=== PATIENT | female | born 1980 | race Caucasian/White ===

== ENCOUNTER → 2016-09-11 | Outpatient (CLI) | payer OTHER ==
--- NOTE | 2016-09-11 17:35 | Non Stress Test Report ---
Non Stress Test Datetime Report Generated by CPN: 09/11/2016 17:34 DEMOGRAPHIC Test Number: 1 EGA NST: 33.4 INDICATION Indication for Study: Ordered by Provider MONITORING Monitor Explained: Monitor Explained; Test Explained; Patient Verbalized Understanding Time on Monitor: 09/11/2016 16:59 Time off Monitor: 09/11/2016 17:27 NST Duration: 28 NST INTERVENTIONS NST Interventions: Reposition Patient Physician Notified NST: H. Lex, CNM BABY A: [id number] BABY A Movement : Present Contraction Frequency : None FHR Baseline : 135 Accelerations : 15X15 Decelerations : None Variability : Moderate 6-25bpm NST Review: Meets Criteria for Reactive NST NST Review and Verified By : Ash Flores RN NST Results: Reactive NST REPORT Report Trigger: Send Report
== END | disposition home or self-care (01) ==
LOC: LC 18:13
PROVIDERS: ATTEND Obstetrics & Gynecology
PROC: 4A1HXCZ Monitoring of Products of Conception, Cardiac Rate, External Approach (ICD-10-PCS; principal; 2016-09-11)
DX: O09.523 Supervision of elderly multigravida, third trimester (principal); Z3A.33 33 weeks gestation of pregnancy
CPT/HCPCS: 59025

== ENCOUNTER 2016-09-15 21:07 | Inpatient (IN) | payer OTHER ==
[2016-09-15] MEDS ORDERED: PENICILLIN G POTASSIUM 5,000,000 UNIT in DEXTROSE 5%-WATER 100 ML IV ONE (22:07)
[2016-09-15] MEDS ORDERED: PENICILLIN G-K 5 MILLION UNIT VIAL ONE (22:17)
[2016-09-15] MEDS ORDERED: PENICILLIN G-K 5 MILLION UNIT VIAL IV PRN ×2 (22:23→22:24)
[2016-09-15 22:49] LABS: AMNISURE (ROM) POSITIVE (NEGATIVE)
[2016-09-15 22:54] LABS: APPEARANCE,URINE CLEAR; BILIRUBIN,URINE NEGATIVE (NEGATIVE); GLUCOSE, URINE NEGATIVE (NEGATIVE); KETONES,URINE NEGATIVE (NEGATIVE); LEUKOCYTE ESTERASE,URINE TRACE (NEGATIVE); NITRITE,URINE NEGATIVE (NEGATIVE); PROTEIN,URINE NEGATIVE (NEGATIVE); UROBILINOGEN,URINE NEGATIVE mg/dL (<2.0)
[2016-09-15 23:00] LABS: URINE BARBITURATES SCREEN NEGATIVE; URINE METHADONE SCREEN NEGATIVE; URINE OPIATES LOW NEGATIVE; URINE PHENCYCLIDINE SCREEN NEGATIVE
[2016-09-15 23:17] LABS: ABSOLUTE EOSINOPHILS # (AUTO) 0.2 10^3/uL (0.0-0.6); ABSOLUTE LYMPHOCYTES (AUTO) 2.4 10^3/uL (0.5-4.7); ABSOLUTE MONOCYTES (AUTO) 0.9 10^3/uL (0.1-1.4); ABSOLUTE NEUT (AUTO) 11.6 10^3/uL (1.7-8.2); BASOPHILS % (AUTO) 0.1 % (0-2); EOSINOPHILS % (AUTO) 1.3 % (0-6); HEMOGLOBIN 11.4 g/dL (12.0-15.5); HGB HCT DIFFERENCE 0.2; LYMPHOCYTES % (AUTO) 15.7 % (13-45); MEAN CORPUSCULAR HEMOGLOBIN 29.2 pg (27.0-33.4); MEAN CORPUSCULAR HGB CONC 33.6 g/dL (32.0-36.0); MEAN CORPUSCULAR VOLUME 87 fl (80-97); MONOCYTES % (AUTO) 6.1 % (3-13); RED BLOOD COUNT 3.91 10^6/uL (3.72-5.28); RED CELL DISTRIBUTION WIDTH 13.8 % (11.5-14.0); SEGMENTED NEUTROPHILS % (AUTO) 76.8 % (42-78); WHITE BLOOD COUNT 15.1 10^3/uL (4.0-10.5)
[2016-09-15] MEDS ORDERED: ALBUTEROL SULFATE 0.083% NEB 2.5 MG/3 ML AMPUL NEB PRN (23:58)
[2016-09-16] MEDS ORDERED: ALBUTEROL SULFATE 0.083% NEB 2.5 MG/3 ML AMPUL NEB ONE (00:25)
[2016-09-16] MEDS: RINGERS SOLUTION,LACTATED 1,000 ML IV PRN ×2 (01:51→02:40)
[2016-09-16] MEDS ORDERED: PENICILLIN G POTASSIUM 2,500,000 UNIT in DEXTROSE 5%-WATER 50 ML IV SCH (02:08)
[2016-09-16] MEDS ORDERED: PENICILLIN G-K 5 MILLION UNIT VIAL ONE ×2 (02:26→06:16)
[2016-09-16] MEDS ORDERED: OXYTOCIN/NORMAL SALINE 1,000 ML IV PRN (02:50)
[2016-09-16] MEDS ORDERED: OXYTOCIN/NORMAL SALINE 20 UNIT/1,000 ML RTUINJ ONE (03:10)
[2016-09-16] MEDS ORDERED: ONDANSETRON HCL INJ/PF 4 MG/2 ML SDV ONE (03:36)
[2016-09-16] MEDS ORDERED: ONDANSETRON HCL INJ/PF 4 MG/2 ML SDV IV ONE (04:00)
[2016-09-16] MEDS ORDERED: PHENYLEPHRINE HCL INJ/PF 10 MG/1 ML SDV ONE (07:33)
--- NOTE | 2016-09-16 08:01 | L&D Flow Sheet ---
LD Flowsheet Datetime Report Generated by CPN: 09/16/2016 08:00 Datetime: 09/16/2016 07:52 Pulse: 92 (QS system process) SpO2 (%): 99 (QS system process) LaborFlag: Antepartum (QS system process) Datetime: 09/16/2016 07:49 Pulse: 97 (QS system process) SpO2 (%): 93 (QS system process) LaborFlag: Antepartum (QS system process) Datetime: 09/16/2016 07:47 Pulse: 98 (QS system process) SpO2 (%): 99 (QS system process) LaborFlag: Antepartum (QS system process) Datetime: 09/16/2016 07:42 Pulse: 105 (QS system process) Pulse: 103 (QS system process) SpO2 (%): 87 (QS system process) SpO2 (%): 89 (QS system process) LaborFlag: Antepartum (QS system process) Datetime: 09/16/2016 07:37 Pulse: 106 (QS system process) SpO2 (%): 100 (QS system process) LaborFlag: Antepartum (QS system process) Datetime: 09/16/2016 07:34 Monitor Interventions for FHR: Ultrasound Adjusted (Nati Hallman RN) Patient Position/Activity: Hands-Knees (Nati Hallman RN) Communication: RN at Bedside (Nati Hallman RN) Datetime: 09/16/2016 07:30 Level of Consciousness: Fully Conscious (Nati Hallman RN) DTR's/Clonus: DTRs 2+; No Clonus (Nati Hallman RN) Headache: Denies (Nati Hallman RN) Breath Sounds, Left: Clear and Equal (aNti Hallman RN) Breath Sounds, Right: Clear and Equal (Nati Hallman RN) Nausea/Vomiting: Denies (Nati Hallman RN) RUQ Epigastric Pain: Denies (Nati Hallman RN) I/O Interventions: Up to BR (Nati Hallman RN) Datetime: 09/16/2016 07:28 Pulse: 93 (QS system process) SpO2 (%): 100 (QS system process) LaborFlag: Antepartum (QS system process) Datetime: 09/16/2016 07:23 Pulse: 87 (QS system process) SpO2 (%): 100 (QS system process) LaborFlag: Antepartum (QS system process) Datetime: 09/16/2016 07:18 Pulse: 93 (QS system process) SpO2 (%): 99 (QS system process) LaborFlag: Antepartum (QS system process) Datetime: 09/16/2016 07:13 Pulse: 99 (QS system process) SpO2 (%): 99 (QS system process) LaborFlag: Antepartum (QS system process) Datetime: 09/16/2016 07:08 Pulse: 103 (QS system process) SpO2 (%): 100 (QS system process) LaborFlag: Antepartum (QS system process) Datetime: 09/16/2016 07:04 Patient Care Comments: D5LR bolus per orders from Dr Rocha (Monae Dowlingsel, RN) Datetime: 09/16/2016 07:03 Pulse: 97 (QS system process) SpO2 (%): 100 (QS system process) LaborFlag: Antepartum (QS system process) Datetime: 09/16/2016 07:02 Monitor Interventions for UA: Vineyard Adjusted (Monae Christa, RN) Datetime: 09/16/2016 07:00 Monitor Mode: External; Palpation (Monae Christa, RN) Frequency (min): 3-4 (Monae Christa, RN) Quality: Mild (Monae Christa, RN) Duration (sec): 50-80 (Monae Christa, RN) Resting Tone (Palpate): Relaxed (Monae Christa, RN) Monitor Mode: External US (Monae Christa, RN) FHR Baseline Rate : 145 (Monae Christa, RN) Variability: Moderate 6-25 bpm (Monae Christa, RN) Accelerations: None (Monae Christa, RN) Decelerations: Variable (Monae Christa, RN) Pitocin (milliunit): Pitocin Remains (milliunits) @ (Annotations: 4 ) (Monae Christa, RN) Datetime: 09/16/2016 06:58 Pulse: 93 (QS system process) SpO2 (%): 98 (QS system process) Quality: Mild (Monae Christa, RN) Contraction Comments: Pt reporting ctx (Monae Christa, RN) LaborFlag: Antepartum (QS system process) Datetime: 09/16/2016 06:53 Pulse: 91 (QS system process) SpO2 (%): 100 (QS system process) LaborFlag: Antepartum (QS system process) Datetime: 09/16/2016 06:50 Actions for Decelerations: Provider Reviewed Strip (Monae Christa, RN) Datetime: 09/16/2016 06:48 Pulse: 103 (QS system process) SpO2 (%): 100 (QS system process) LaborFlag: Antepartum (QS system process) Datetime: 09/16/2016 06:45 Contraction Comments: Unable to accurately assess ctx, RN adjusted toco (Monae Christa, RN) Monitor Mode: External US (Monae Christa, RN) FHR Baseline Rate : 145 (Monae Christa, RN) Variability: Moderate 6-25 bpm (Monae Christa, RN) Accelerations: 10X10 (Monae Christa, RN) Decelerations: Variable (Monae Christa, RN) Pitocin (milliunit): Pitocin Remains (milliunits) @ (Annotations: 4) (Monae Christa, RN) Datetime: 09/16/2016 06:43 Pulse: 98 (QS system process) SpO2 (%): 99 (QS system process) LaborFlag: Antepartum (QS system process) Datetime: 09/16/2016 06:39 Monitor Interventions for UA: Vineyard Adjusted (Monae Christa, RN) Datetime: 09/16/2016 06:38 Pulse: 102 (QS system process) SpO2 (%): 100 (QS system process) Actions for Decelerations: Trendelenberg (Monae Christa, RN) LaborFlag: Antepartum (QS system process) Datetime: 09/16/2016 06:33 Pulse: 102 (QS system process) SpO2 (%): 100 (QS system process) LaborFlag: Antepartum (QS system process) Datetime: 09/16/2016 06:31 Comments: side to side (Monae Christa, RN) Datetime: 09/16/2016 06:30 Monitor Mode: External; Palpation (Monae Christa, RN) Frequency (min): 2-5 (Monae Christa, RN) Quality: Mild (Monae Christa, RN) Duration (sec): 50-70 (Monae Christa, RN) Resting Tone (Palpate): Relaxed (Monae Christa, RN) Monitor Mode: External US (Monae Christa, RN) FHR Baseline Rate : 150 (Monae Christa, RN) Variability: Minimal - Undetectable to <=5 bpm (Monae Christa, RN) Accelerations: None (Monae Christa, RN) Decelerations: Variable (Monae Christa, RN) Pitocin (milliunit): Pitocin Remains (milliunits) @ (Annotations: 4) (Monae Christa, RN) Datetime: 09/16/2016 06:28 Pulse: 103 (QS system process) SpO2 (%): 98 (QS system process) Comments: side to side (Monae Christa, RN) LaborFlag: Antepartum (QS system process) Datetime: 09/16/2016 06:25 Comments: side to side (Monae Christa, RN) Datetime: 09/16/2016 06:22 Comments: Rn remains at bedside attempting to locate FHR (Monae Christa, RN) Datetime: 09/16/2016 06:19 Actions for Decelerations: Sterile Vaginal Exam (Monae Christa, RN) Actions for Decelerations: IV Bolus (Monae Christa, RN) Dilatation (cm): 1.0 (Monae Christa, RN) Effacement (%): 30 (Monae Christa, RN) Station: -2 (Monae Goodwin RN) Exam by: Renato Goodwin RN (Monae Goodwin RN) Vaginal Bleeding: None (Monae Goodwin RN) Cervix, Consistency: Soft (Monae Goodwin RN) Cervix, Position: Midposition (Monae Goodwin RN) Pitocin (milliunit): Pitocin Decreased to (milliunits) @ 4 (Monae Goodwin RN) IV/Blood Work: IV Bolus Given ml @ 250 (Monae Goodwin RN) Datetime: 09/16/2016 06:15 Monitor Mode: External; Palpation (Monae Goodwin RN) Frequency (min): 2-4 (Monae Goodwin RN) Quality: Mild (Monae Goodwin RN) Duration (sec): 50-80 (Monae Goodwin RN) Resting Tone (Palpate): Relaxed (Monae Goodwin RN) Monitor Mode: External US (Monae Goodwin RN) FHR Baseline Rate : 150 (Monae Goodwin RN) Variability: Minimal - Undetectable to <=5 bpm (Monae Goodwin RN) Accelerations: None (Monae Goodwin RN) Decelerations: Variable (Monae Goodwin RN) Actions for Decelerations: Provider Reviewed Strip (Monae Goodwin RN) Pitocin (milliunit): Pitocin Remains (milliunits) @ (Annotations: 8) (Monae Christa, RN) Provider Reviewed Strip: Yes (Monae Goodwin, RN) Communication Comments: DR Rocha on unit, reviewed strip, Orders to decrease pitocin and SVE now (Monae Goodwin, RN) Datetime: 09/16/2016 06:11 Communication Comments: Dr. Rocha notified of repetitive variables . MD requested to review tracing. (Shadia Temple, RN) Datetime: 09/16/2016 06:04 Actions for Decelerations: Side to Side (Monae Dowlingsel, RN) Datetime: 09/16/2016 06:00 Monitor Mode: External (Monae Christa, RN) Frequency (min): 2-3.5 (Monae Christa, RN) Quality: Mild (Monae Christa, RN) Duration (sec): 70-120 (Monae Christa, RN) Resting Tone (Palpate): Relaxed (Monae Christa, RN) Monitor Mode: External US (Monae Christa, RN) FHR Baseline Rate : 145 (Monae Christa, RN) Variability: Moderate 6-25 bpm (Monae Christa, RN) Accelerations: 10X10 (Monae Christa, RN) Decelerations: Variable (Monae Christa, RN) Pitocin (milliunit): Pitocin Remains (milliunits) @ (Annotations: 8) (Monae Christa, RN) Datetime: 09/16/2016 05:59 Patient Position/Activity: Right Tilt (Monae Christa, RN) Communication: RN at Bedside (Monae Christa, RN) Datetime: 09/16/2016 05:45 Monitor Mode: External (Monae Christa, RN) Frequency (min): 2-4 (Monae Christa, RN) Quality: Mild (Monae Christa, RN) Duration (sec): 60-80 (Omnae Christa, RN) Resting Tone (Palpate): Relaxed (Monae Christa, RN) Monitor Mode: External US (Monae Christa, RN) FHR Baseline Rate : 145 (Monae Christa, RN) Variability: Moderate 6-25 bpm (Monae Christa, RN) Accelerations: 15X15 (Monae Christa, RN) Decelerations: Variable (Monae Christa, RN) Pitocin (milliunit): Pitocin Remains (milliunits) @ (Annotations: 8) (Monae Christa, RN) Datetime: 09/16/2016 05:30 Contraction Comments: Unable to assess, pt up to BR (Monae Christa, RN) Monitor Mode: External US (Monae Christa, RN) FHR Baseline Rate : 145 (Monae Christa, RN) Variability: Moderate 6-25 bpm (Monae Christa, RN) Accelerations: None (Monae Christa, RN) Decelerations: None (Monae Christa, RN) Pitocin (milliunit): Pitocin Remains (milliunits) @ (Annotations: 8) (Monae Christa, RN) Datetime: 09/16/2016 05:22 I/O Interventions: Up to BR (Monae Christa, RN) Datetime: 09/16/2016 05:15 Monitor Mode: External (Monae Christa, RN) Frequency (min): none (Monae Christa, RN) Resting Tone (Palpate): Relaxed (Monae Christa, RN) Monitor Mode: External US (Monae Christa, RN) FHR Baseline Rate : 145 (Monae Christa, RN) Variability: Moderate 6-25 bpm (Monae Christa, RN) Accelerations: None (Monae Christa, RN) Decelerations: Variable (Monae Christa, RN) Pitocin (milliunit): Pitocin Increased to (milliunits) @ 8 (Monae Christa, RN) Datetime: 09/16/2016 05:06 NBP Sys/Penny/Mean (mmHg): 116 (QS system process) : 69 (QS system process) : 87 (QS system process) Pulse: 94 (QS system process) LaborFlag: Antepartum (QS system process) Datetime: 09/16/2016 05:00 Monitor Mode: External (Monae Christa, RN) Frequency (min): none (Monae Christa, RN) Resting Tone (Palpate): Relaxed (Monae Christa, RN) Monitor Mode: External US (Monae Christa, RN) FHR Baseline Rate : 140 (Monae Christa, RN) Variability: Moderate 6-25 bpm (Monae Christa, RN) Accelerations: 10X10 (Monae Christa, RN) Decelerations: None (Monae Christa, RN) Pitocin (milliunit): Pitocin Remains (milliunits) @ 6 (Monae Christa, RN) Datetime: 09/16/2016 04:51 NBP Sys/Penny/Mean (mmHg): 114 (QS system process) : 68 (QS system process) : 83 (QS system process) Pulse: 105 (QS system process) LaborFlag: Antepartum (QS system process) Datetime: 09/16/2016 04:50 Additional Nursing Comments: Report to oncoming shift, care relinquished to JULISSA Brooke (Shadia Temple RN) Datetime: 09/16/2016 04:45 Monitor Mode: External; Palpation (Shadia Temple RN) Frequency (min): none (Shadia Temple RN) Resting Tone (Palpate): Relaxed (Shadia Temple RN) Monitor Mode: External US (Shadia Kossmann, RN) FHR Baseline Rate : 145 (Shadia Temple, RN) Variability: Moderate 6-25 bpm (Shadia Kossmann, RN) Accelerations: 15X15 (Shadia Kossmann, RN) Decelerations: None (Shadia Hartmansmann, RN) Datetime: 09/16/2016 04:36 NBP Sys/Penny/Mean (mmHg): 118 (QS system process) : 70 (QS system process) : 87 (QS system process) Pulse: 105 (QS system process) Respirations: 18 (Shadia Temple, RN) Temperature (F): 98.0 (Shadia Temple, RN) Temperature (C): 36.7 (QS system process) Temperature Route: Oral (Shadia Temple RN) Pain Scale: 0 (Shadia Temple RN) Pain Presence: None/Denies (Shadia Temple RN) Pain Type: N/A (Shadia Temple RN) LaborFlag: Antepartum (QS system process) Datetime: 09/16/2016 04:30 Monitor Mode: External; Palpation (Shadia Temple, RN) Frequency (min): x1 (Shadia Temple, RN) Quality: Mild (Shadia Temple, RN) Duration (sec): 60 (Shadia Temple, RN) Resting Tone (Palpate): Relaxed (Shadia Temple, RN) Monitor Mode: External US (Shadia Temple, RN) FHR Baseline Rate : 140 (Shadia Temple, RN) Variability: Moderate 6-25 bpm (Shadia Temple, RN) Decelerations: None (Shadia Temple, RN) Pitocin (milliunit): Pitocin Increased to (milliunits) @ (Annotations: 6) (Shadia Temple, RN) Datetime: 09/16/2016 04:21 NBP Sys/Penny/Mean (mmHg): 116 (QS system process) : 71 (QS system process) : 88 (QS system process) Pulse: 101 (QS system process) LaborFlag: Antepartum (QS system process) Datetime: 09/16/2016 04:20 Patient Care Comments: patient states she feels better after zofran (Shadia Kossmann, RN) Datetime: 09/16/2016 04:16 Monitor Interventions for FHR: Ultrasound Adjusted (Shadia Devansmann, RN) Datetime: 09/16/2016 04:11 Monitor Interventions for FHR: Ultrasound Adjusted (Shadia Kossmann, RN) Datetime: 09/16/2016 04:06 NBP Sys/Penny/Mean (mmHg): 120 (QS system process) : 72 (QS system process) : 89 (QS system process) Pulse: 102 (QS system process) LaborFlag: Antepartum (QS system process) Datetime: 09/16/2016 04:00 Monitor Mode: External; Palpation (Shadia Temple RN) Frequency (min): none (Shadia Temple RN) Resting Tone (Palpate): Relaxed (Shadia Temple RN) Monitor Mode: External US (Shadia Temple RN) Variability: Moderate 6-25 bpm (Shadia Temple RN) Decelerations: Variable (Shadia Temple RN) Pitocin (milliunit): Pitocin Increased to (milliunits) @ (Annotations: 4) (Shadia Temple RN) Datetime: 09/16/2016 03:51 NBP Sys/Penny/Mean (mmHg): 120 (QS system process) : 74 (QS system process) : 91 (QS system process) Pulse: 100 (QS system process) LaborFlag: Antepartum (QS system process) Datetime: 09/16/2016 03:45 Monitor Mode: External; Palpation (Shadia Temple, RN) Frequency (min): none (Shadiastew Temple, RN) Resting Tone (Palpate): Relaxed (Shadia Temple, RN) Monitor Mode: External US (Shadia Temple, RN) FHR Baseline Rate : 145 (Shadia Dignaann, RN) FHR Baseline Rate : 140 (Shadia Kossmann, RN) Variability: Moderate 6-25 bpm (Shadia Kossmann, RN) Accelerations: 10X10 (Shadia Kossmann, RN) Accelerations: 15X15 (Shadia Kossmann, RN) Decelerations: None (Shadia Devansmann, RN) Datetime: 09/16/2016 03:43 Antiemetics/Antacids: Zofran IV (mg) @ (Annotations: 4mg sivp) (Shadia Temple RN) Datetime: 09/16/2016 03:30 Monitor Mode: External; Palpation (Shadia Temple, RN) Frequency (min): none (Shadia Temple, RN) Resting Tone (Palpate): Relaxed (Shadia Temple, RN) Monitor Mode: External US (Shadia Temple, RN) FHR Baseline Rate : 135 (Shadia Temple, RN) Variability: Moderate 6-25 bpm (Shadia Temple, RN) Accelerations: 15X15 (Shadia Temple, RN) Decelerations: None (Shadia Temple, RN) Pitocin (milliunit): Pitocin Started (milliunits) @; Pitocin 20 Units in 1000ml NS (Annotations: 2 milliunits/min) (Shadia Temple, RN) Datetime: 09/16/2016 03:19 I/O Interventions: Up to BR (Shadia Temple, RN) Datetime: 09/16/2016 03:01 Monitor Mode: External; Palpation (Shadia Kossmann, RN) Frequency (min): none (Shadia Kossmann, RN) Resting Tone (Palpate): Relaxed (Shadia Kossmann, RN) Monitor Mode: External US (Shadia Kossmann, RN) FHR Baseline Rate : 130 (Shadia Kossmann, RN) Variability: Moderate 6-25 bpm (Shadia Kossmann, RN) Accelerations: 15X15 (Shadia Kossmann, RN) Decelerations: None (Shadia Kossmann, RN) Datetime: 09/16/2016 02:44 Monitor Interventions for UA: Vineyard Adjusted (Shadia Kossmann, RN) Monitor Interventions for FHR: Ultrasound Adjusted (Shadia Kossmann, RN) Datetime: 09/16/2016 02:40 IV/Blood Work: New IV Bag Hung (Sindi Rodriguez, RN) Communication Comments: Report from RN Rodriguez, tiffanie assumsharp [facility] (Shadia Sawyerdarnell, RN) Datetime: 09/16/2016 02:32 Antibiotics: Penicillin IV (Units) @ 2.5 million units (Sindi Rodriguez, RN) Datetime: 09/16/2016 02:30 Stage of : Antepartum (Sindi Rodriguez, RN) Monitor Mode: External (Sindi Rodriguez, RN) Frequency (min): irregular (Sindi Rodriguez, RN) Quality: Mild (Sindi Rodriguez, RN) Duration (sec): 70-110 (Sindi Rodriguez, RN) Resting Tone (Palpate): Relaxed (Sindi Rodriguez, RN) Monitor Mode: External US (Sindi Rodriguez, RN) FHR Baseline Rate : 140 (Sindi Rodriguez, RN) Variability: Moderate 6-25 bpm (Sindi Rodriguez, RN) Accelerations: 10X10 (Sindi Rodriguez, RN) Comments: UTD if decels present during broknen strip (Sindi Rodriguez, RN) Communication: RN at Bedside; RN Reviewed Strip (Sindi Rodriguez, RN) Datetime: 09/16/2016 02:09 Monitor Interventions for FHR: Ultrasound Adjusted (Sindi Rodriguez, RN) Datetime: 09/16/2016 02:07 Monitor Interventions for FHR: Ultrasound Adjusted (Sindi Rodriguez, RN) Datetime: 09/16/2016 02:00 Stage of : Antepartum (Sindi Rodriguez, RN) Monitor Mode: External (Sindi Rodriguez, RN) Frequency (min): irregular (Sindi Rodriguez, RN) Quality: Mild (Sindi Rodriguez, RN) Duration (sec): 70 (Sindi Rodriguez, RN) Resting Tone (Palpate): Relaxed (Sindi Rodriguez, RN) Monitor Mode: External US (Sindi Rodriguez, RN) Monitor Interventions for FHR: Ultrasound Adjusted (Sindi Rodriguez, RN) FHR Baseline Rate : 140 (Sindi Rodriguez, RN) Variability: Moderate 6-25 bpm (Sindi Rodriguez, RN) Accelerations: 15X15 (Sindi Rodriguez, RN) Communication: RN at Bedside; RN Reviewed Strip (Sindi Rodriguez, RN) Datetime: 09/16/2016 01:30 Stage of : Antepartum (Sindi Rodriguez, RN) Respirations: 18 (Sindi Rodriguez, RN) Temperature (F): 97.9 (Sindi Rodriguez, RN) Temperature (C): 36.6 (QS system process) Monitor Mode: External US (Sindi Rodriguez, RN) FHR Baseline Rate : 140 (Sindi Rodriguez, RN) Variability: Moderate 6-25 bpm (Sindi Rodriguez, RN) Accelerations: 15X15 (Sindi Rodriguez, RN) Comments: UTD if decels present during broken tracing or Maternal HR tracing (Sindi Rodriguez, RN) Pain Scale: 0 (Sindi Rodriguez RN) Pain Presence: None/Denies (Sindi Rodriguez RN) Pain Type: N/A (Sindi Rodriguez RN) Comfort Measures: Breathing/Relaxation; Family Support (Sindi Rodriguez RN) Communication: RN at Bedside; RN Reviewed Strip (Sindi Rodriguez RN) LaborFlag: Antepartum (QS system process) Datetime: 09/16/2016 01:28 Patient Position/Activity: Left Tilt; High Fowlers (Sindi Rodriguez, RN) Datetime: 09/16/2016 01:22 Monitor Interventions for FHR: Ultrasound Adjusted (Sindi Rodriguez RN) Comments: tracing maternal HR. RN at bedside (Sindi Rodriguez, JULISSA) Datetime: 09/16/2016 01:18 Patient Care Comments: meal provided, patient sitting straight up in bed (Sindi Rodriguez, RN) Datetime: 09/16/2016 01:16 Monitor Interventions for FHR: Ultrasound Adjusted (Sindi Rodriguez, RN) Datetime: 09/16/2016 01:00 Stage of : Antepartum (Sindi Rodriguez, RN) Monitor Mode: External (Sindi Rodriguez, RN) Frequency (min): none (Sindi Rodriguez, RN) Monitor Mode: External US (Sindi Rodriguez, RN) FHR Baseline Rate : 145 (Sindi Rodriguez, RN) Variability: Moderate 6-25 bpm (Sindi Rodriguez, RN) Accelerations: 10X10 (Sindi Rodriguez, RN) Decelerations: None (Sindi Rodriguez, RN) Communication: RN at Bedside; RN Reviewed Strip (Sindi Rodriguez, RN) Datetime: 09/16/2016 00:54 NBP Sys/Penny/Mean (mmHg): 126 (QS system process) : 77 (QS system process) : 95 (QS system process) Pulse: 111 (QS system process) LaborFlag: Antepartum (QS system process) Datetime: 09/16/2016 00:53 Bedside Blood Glucose: 118 H (QS system process) LaborFlag: Antepartum (QS system process) Datetime: 09/16/2016 00:51 Bedside Blood Glucose: 118 (Sindi Rodriguez, RN) LaborFlag: Antepartum (QS system process) Datetime: 09/16/2016 00:43 Monitor Interventions for FHR: Ultrasound Adjusted (Sindi Rodriguez, RN) Comments: maternal HR tracing, RN at bedside (Sindi Rodriguez, RN) Datetime: 09/16/2016 00:38 I/O Interventions: Up to BR (Sindi Rodriguez, RN) Datetime: 09/16/2016 00:30 Stage of : Antepartum (Sindi Rodriguez, JULISSA) Monitor Mode: External; Palpation (Sindi Rodriguez, RN) Frequency (min): irregular (Sindi Rodriguez, RN) Quality: Mild (Sindi Rodriguez, RN) Duration (sec): 50-110 (Sindi Rodriguez, RN) Pattern: Normal: <= 5 Contractions in 10 Minutes (Sindi Rodriguez, RN) Resting Tone (Palpate): Relaxed (Sindi Rodriguez, RN) Monitor Mode: External US (Sindi Rodriguez, RN) Monitor Interventions for FHR: Ultrasound Adjusted (Sindi Rodriguez RN) FHR Baseline Rate : 140 (Sindi Rodriguez, RN) Variability: Moderate 6-25 bpm (Sindi Rodriguez, RN) Accelerations: 15X15 (Sindi Rodriguez, RN) Comments: unable to determine if decels are present during broken strip (Sindi Rodriguez RN) Communication: RN at Bedside; RN Reviewed Strip (Sindi Rodriguez, JULISSA) Datetime: 09/16/2016 00:23 NBP Sys/Penny/Mean (mmHg): 118 (QS system process) : 75 (QS system process) : 90 (QS system process) Pulse: 93 (QS system process) LaborFlag: Antepartum (QS system process) Datetime: 09/15/2016 23:50 Monitor Interventions for FHR: Ultrasound Adjusted (Sindi Rodriguez, RN) Datetime: 09/15/2016 23:45 Monitor Interventions for FHR: Ultrasound Adjusted (Sindi Rodriguez, RN) Datetime: 09/15/2016 23:30 Respirations: 18 (Sindi Rodriguez, RN) Monitor Mode: External (Sindi Rodriguez, RN) Frequency (min): irregular (Sindi Rodriguez, RN) Quality: Mild (Sindi Rodriguez, RN) Duration (sec): 80-110 (Sindi Rodriguez, RN) Resting Tone (Palpate): Relaxed (Sindi Rodriguez, RN) Monitor Mode: External US (Sindi Rodriguez, RN) Monitor Interventions for FHR: Ultrasound Adjusted (Sindi Rodriguez RN) FHR Baseline Rate : 140 (Sindi Rodriguez RN) Variability: Moderate 6-25 bpm (Sindi Rodriguez RN) Accelerations: 10X10 (Sindi Rodriguez RN) Decelerations: None (Sindi Rodriguez RN) Pain Scale: 1 (Sindi Rodriguez RN) Pain Presence: Intermittent (Sindi Rodriguez RN) Pain Type: Cramping (Sindi Rodriguez RN) Pain Location: Abdomen (Sindi Rodriguez RN) Pain Relief Measures: Comfort Measures (Sindi Rodriguez RN) Comfort Measures: Breathing/Relaxation; Family Support (Sindi Rodriguez RN) I/O Interventions: Up to BR (Sindi Rodriguez RN) Communication: RN at Bedside; RN Reviewed Strip (Sindi Rodriguez RN) LaborFlag: Antepartum (QS system process) Datetime: 09/15/2016 23:24 Procedures: Consents Signed (Sindi Rodriguez RN) Datetime: 09/15/2016 23:19 Monitor Interventions for UA: Vineyard Adjusted (Sindi Rodriguez, RN) Datetime: 09/15/2016 23:12 Pain Scale: 0 (Sindi Rodriguez, RN) Pain Presence: None/Denies (Sindi Rodriguez, RN) Pain Type: N/A (Sindi Rodriguez, RN) Pain Relief Measures: Comfort Measures (Sindi Rodriguez, RN) Pain Coping: Talking Through Contractions (Sindi Rodriguez, RN) Vaginal Bleeding: None (Sindi Rodriguez, RN) Level of Consciousness: Fully Conscious (Sindi Rodriguez, RN) DTR's/Clonus: DTRs 2+; No Clonus (Sindi Rodriguez, RN) Headache: Denies (Sindi Rodriguez, RN) Breath Sounds, Left: Wheezes (Sindi Rordiguez, RN) Breath Sounds, Right: Wheezes (Sindi Rodriguez, RN) Nausea/Vomiting: Denies (Sindi Rodriguez, RN) RUQ Epigastric Pain: Denies (Sindi Rodriguez, RN) LaborFlag: Antepartum (QS system process) Datetime: 09/15/2016 23:00 Stage of : Antepartum (Sindi Rodriguez, RN) Monitor Mode: External (Sindi Rodriguez, RN) Frequency (min): x2 (Sindi Rodriguez, RN) Quality: Mild (Sindi Rodriguez, RN) Duration (sec): 40-60 (Sindi Rodriguez, RN) Pattern: Normal: <= 5 Contractions in 10 Minutes (Sindi Rodriguez, RN) Resting Tone (Palpate): Relaxed (Sindi Rodriguez, RN) Monitor Mode: External US (Sindi Rodriguez, RN) Monitor Interventions for FHR: Ultrasound Adjusted (Sindi Rodriguez, RN) FHR Baseline Rate : 140 (Sindi Rodriguez, RN) Variability: Moderate 6-25 bpm (Sindi Rodriguez, RN) Accelerations: 10X10 (Sindi Rodriguez, RN) Decelerations: None (Sindi Rodriguez, RN) Communication: RN at Bedside; RN Reviewed Strip (Sindi Rodriguez, RN) Datetime: 09/15/2016 22:49 Comments: Maternal HR tracing, RN at bedside (Sindi Rodriguez, RN) Datetime: 09/15/2016 22:40 NBP Sys/Penny/Mean (mmHg): 126 (QS system process) : 81 (QS system process) : 98 (QS system process) Pulse: 94 (QS system process) LaborFlag: Labor (QS system process) Datetime: 09/15/2016 22:37 Antibiotics: Start Antibiotics; Penicillin IV (Units) @ 5 million units (Sindi Rodriguez RN) IV/Blood Work: IV Started; IV Bolus Started (Sindi Rodriguez RN) Patient Care Comments: 18 gauge placed in L forearm on first attempt. Patient tolerated well. (Sindi Rodriguez, RN) Datetime: 09/15/2016 22:30 Monitor Mode: External; Palpation (Sindi Rodriguez, RN) Frequency (min): x1 (Sindi Rodriguez, RN) Quality: Mild (Sindi Rodriguez, RN) Duration (sec): 120 (Sindi Rodirguez, RN) Pattern: Normal: <= 5 Contractions in 10 Minutes (Sindi Rodriguez RN) Resting Tone (Palpate): Relaxed (Sindi Rodriguez RN) Monitor Mode: External US (Sindi Rodriguez RN) FHR Baseline Rate : 140 (Sindi Rodriguez RN) Variability: Moderate 6-25 bpm (Sindi Rodriguez RN) Accelerations: 15X15 (Sindi Rodriguez RN) Decelerations: Variable (Sindi Rodriguez RN) Communication: RN at Bedside; RN Reviewed Strip (Sindi Rodriguez RN) Datetime: 09/15/2016 22:07 Instructional Method: Verbal; Patient Instructed; Family/Support Person Instructed; Verbalized Understanding (Sindi Rodriguez RN) Plan of Care: Plan of Care Discussed (Sindi Rodriguez RN) Unit Routine: [place] to Room; Call Reyes; Bed; Unit Personnel (Sindi Rodriguez RN) Labor/Induction: Labor Stages (Sindi Rodriguez RN)
[2016-09-16] MEDS ORDERED: CITRIC ACID/SODIUM CITRATE ORAL SOLN 15 ML UDCUP ONE ×2 (08:12→10:19)
[2016-09-16] MEDS ORDERED: PENICILLIN G-K 5 MILLION UNIT VIAL IV SCH (10:00)
--- NOTE | 2016-09-16 10:00 | L&D Flow Sheet ---
LD Flowsheet Datetime Report Generated by CPN: 09/16/2016 10:00 Datetime: 09/16/2016 09:55 NBP Sys/Penny/Mean (mmHg): 129 (QS system process) : 76 (QS system process) : 95 (QS system process) Pulse: 100 (QS system process) LaborFlag: Antepartum (QS system process) Datetime: 09/16/2016 09:40 NBP Sys/Penny/Mean (mmHg): 125 (QS system process) : 74 (QS system process) : 93 (QS system process) Pulse: 98 (QS system process) LaborFlag: Antepartum (QS system process) Datetime: 09/16/2016 09:30 Monitor Mode: External; Palpation (Nati Hallman RN) Frequency (min): 3-4 (Nati Hallman RN) Quality: Mild (Nati Hallman RN) Duration (sec): 50-60 (Nati Hallman RN) Resting Tone (Palpate): Relaxed (Nati Hallman RN) Monitor Mode: External US (Nati Hallman RN) FHR Baseline Rate : 155 (Nati Hallman RN) Variability: Moderate 6-25 bpm (Nati Hallman RN) Accelerations: None (Nati Hallman RN) Decelerations: Variable (Nati Hallman RN) Pitocin (milliunit): Pitocin Increased to (milliunits) @ 12 (Nati Hallman RN) Datetime: 09/16/2016 09:26 NBP Sys/Penny/Mean (mmHg): 128 (QS system process) : 71 (QS system process) : 93 (QS system process) Pulse: 100 (QS system process) I/O Interventions: Popsicle (Nati Lexx, RN) LaborFlag: Antepartum (QS system process) Datetime: 09/16/2016 09:24 Bedside Blood Glucose: 84 (QS system process) LaborFlag: Antepartum (QS system process) Datetime: 09/16/2016 09:20 Monitor Interventions for UA: [place] Adjusted (Nati Hallman, RN) Datetime: 09/16/2016 09:18 Patient Position/Activity: Right Lateral (Nati Lexx, RN) Datetime: 09/16/2016 09:15 Monitor Mode: External; Palpation (Nati Hallman RN) Quality: Mild (Nati Hallman RN) Resting Tone (Palpate): Relaxed (Nati Hallman RN) Contraction Comments: contractions not tracing on monitor, attempting to troubleshoot (Nati Hallman RN) Monitor Mode: External US (Nati Hallman RN) FHR Baseline Rate : 150 (Nati Hallman RN) Variability: Moderate 6-25 bpm (Nati Hallman RN) Accelerations: 10X10 (Nati Hallman RN) Decelerations: Variable (Nati Hallman RN) Pitocin (milliunit): Pitocin Increased to (milliunits) @ 10 (Nati Hallman RN) Datetime: 09/16/2016 09:13 Monitor Interventions for UA: [place] Adjusted (Nati Hallman, RN) Datetime: 09/16/2016 09:10 NBP Sys/Penny/Mean (mmHg): 108 (QS system process) : 57 (QS system process) : 77 (QS system process) Pulse: 89 (QS system process) LaborFlag: Antepartum (QS system process) Datetime: 09/16/2016 09:00 Monitor Mode: External; Palpation (Nati Hallman RN) Resting Tone (Palpate): Relaxed (Nati Hallman RN) Contraction Comments: contractions not tracing on monitor, repositioning toco (Nati Hallman RN) Monitor Mode: External US (Nati Hallman RN) FHR Baseline Rate : 155 (Nati Hallman RN) Variability: Minimal - Undetectable to <=5 bpm (Nati Hallman RN) Accelerations: 10X10 (Nati Hallman RN) Decelerations: None (Nati Hallman RN) Pitocin (milliunit): Pitocin Remains (milliunits) @ 8 (Nati Hallman RN) Datetime: 09/16/2016 08:55 NBP Sys/Penny/Mean (mmHg): 107 (QS system process) : 59 (QS system process) : 75 (QS system process) Pulse: 93 (QS system process) LaborFlag: Antepartum (QS system process) Datetime: 09/16/2016 08:49 Monitor Interventions for UA: [place] Adjusted (Nati Hallman, RN) Datetime: 09/16/2016 08:46 Monitor Interventions for UA: [place] Adjusted (Nati Hallman, RN) Datetime: 09/16/2016 08:45 Monitor Mode: External; Palpation (Nati Hallman RN) Quality: Mild (Nati Hallman RN) Duration Criteria: Less than Two 120 Second Contractions (Nati Hallman RN) Pattern: Normal: <= 5 Contractions in 10 Minutes (Nati Hallman RN) Resting Tone (Palpate): Relaxed (Nati Hallman RN) Contraction Comments: contractions not tracing on monitor, pt states she feels them 4 minutes apart. Mild contraction palpated (Nati Hallman RN) Monitor Mode: External US (Nati Hallman RN) FHR Baseline Rate : 155 (Nati Hallman RN) Variability: Moderate 6-25 bpm (Nati Hallman RN) Accelerations: 10X10 (Nati Hallman RN) Decelerations: Variable (Nati Hallman RN) Pitocin (milliunit): Pitocin Increased to (milliunits) @ 8 (Nati Hallman RN) Datetime: 09/16/2016 08:40 NBP Sys/Penny/Mean (mmHg): 101 (QS system process) : 59 (QS system process) : 76 (QS system process) Pulse: 84 (QS system process) LaborFlag: Antepartum (QS system process) Datetime: 09/16/2016 08:30 Monitor Mode: External (Nati Hallman RN) Quality: Mild (Nati Hallman RN) Resting Tone (Palpate): Relaxed (Nati Hallman RN) Contraction Comments: contractions not tracing on monitor, pt states she is feeling them about 5 minutes apart (Nati Hallman RN) Monitor Mode: External US (Nati Hallman RN) FHR Baseline Rate : 155 (Nati Hallman RN) Variability: Moderate 6-25 bpm (Nati Hallman RN) Accelerations: 15X15 (Nati Hallman RN) Decelerations: Variable (Nati Hallman RN) Pitocin (milliunit): Pitocin Increased to (milliunits) @ 6 (Nati Hallman RN) Medication Comments: Increase Pitocin per C. Simms CNM (Nati Hallman RN) Datetime: 09/16/2016 08:25 NBP Sys/Penny/Mean (mmHg): 102 (QS system process) : 59 (QS system process) : 74 (QS system process) Pulse: 91 (QS system process) LaborFlag: Antepartum (QS system process) Datetime: 09/16/2016 08:19 I/O Interventions: Clear Liquids Given (Nati Hallman RN) Datetime: 09/16/2016 08:16 Monitor Interventions for UA: [place] Adjusted (Nati Hallman RN) Antiemetics/Antacids: Bicitra 15 ml PO (Nati Hallman RN) Datetime: 09/16/2016 08:15 Monitor Mode: External (Nati Hallman RN) Resting Tone (Palpate): Relaxed (Nati Hallman RN) Contraction Comments: contractions not tracing on monitor (Nati Hallman RN) Monitor Mode: External US (Nati Hallman RN) FHR Baseline Rate : 155 (Nati Hallman RN) Variability: Moderate 6-25 bpm (Nati Hallman RN) Accelerations: None (Nati Hallman RN) Decelerations: Variable (Nati Hallman RN) Pitocin (milliunit): Pitocin Remains (milliunits) @ 4 (Nati Hallman RN) Datetime: 09/16/2016 08:13 Patient Position/Activity: Left Lateral (Nati Hallman RN) Datetime: 09/16/2016 08:00 Respirations: 16 (Nati Hallman RN) Temperature (F): 98.5 (Nati Hallman RN) Temperature (C): 36.9 (QS system process) Monitor Mode: External (Nati Hallman RN) Resting Tone (Palpate): Relaxed (Nati Hallman RN) Contraction Comments: contractions not tracing on monitor (Nati Hallman RN) Monitor Mode: External US (Nati Hallman RN) FHR Baseline Rate : 155 (Nati Hallman RN) Variability: Moderate 6-25 bpm (Nati Hallman RN) Accelerations: None (Nati Hallman RN) Decelerations: Variable (Nati Hallman RN) Pain Presence: None/Denies (Nati Hallman RN) Pitocin (milliunit): Pitocin Remains (milliunits) @ 4 (Nati Hallman RN) LaborFlag: Antepartum (QS system process)
[2016-09-16] MEDS ORDERED: CEFAZOLIN 2 GM/D5W RTU 2 GM/50 ML RTUPB IV ONE (10:19)
[2016-09-16] MEDS ORDERED: OXYTOCIN 10 UNIT/ML VIAL ONE (10:41)
[2016-09-16] MEDS ORDERED: EPHEDRINE SULFATE INJ 50 MG/1 ML AMPULE ONE (10:42)
[2016-09-16] MEDS ORDERED: MIDAZOLAM 2 MG/2 ML INJ ONE (10:42)
[2016-09-16] MEDS ORDERED: PROPOFOL INJ 200 MG/20 ML VIAL IV ONE (10:42)
[2016-09-16] MEDS ORDERED: FENTANYL CITRATE INJ/PF 100 MCG/2 ML AMPUL ONE ×2 (10:42→13:11)
[2016-09-16] MEDS ORDERED: KETAMINE HCL INJ 500 MG/10 ML VIAL ONE (11:14)
[2016-09-16] MEDS ORDERED: DIPHENHYDRAMINE HCL 50 MG/ML VIAL IV PRN (11:27)
[2016-09-16] MEDS ORDERED: FENTANYL CITRATE INJ/PF 100 MCG/2 ML AMPUL IV PRN ×3 (11:27)
[2016-09-16] MEDS ORDERED: MORPHINE SULFATE 10 MG/ML INJ IV PRN (11:27)
[2016-09-16] MEDS ORDERED: PROMETHAZINE HCL INJ 25 MG/1 ML VIAL IV PRN (11:27)
[2016-09-16] MEDS ORDERED: OXYCODONE-ACETAMINOPHEN 5-325 MG TABLET PO PRN ×2 (11:27)
[2016-09-16] MEDS ORDERED: MEPERIDINE HCL/PF INJ 25 MG/1 ML DISP.SYRIN IV PRN (11:27)
--- NOTE | 2016-09-16 12:00 | L&D Flow Sheet ---
LD Flowsheet Datetime Report Generated by CPN: 09/16/2016 12:00 Datetime: 09/16/2016 11:59 Pulse: 83 (QS system process) SpO2 (%): 98 (QS system process) Datetime: 09/16/2016 11:57 NBP Sys/Penny/Mean (mmHg): 109 (QS system process) : 55 (QS system process) : 76 (QS system process) Datetime: 09/16/2016 11:54 Pulse: 102 (QS system process) Pulse: 96 (QS system process) SpO2 (%): 93 (QS system process) Datetime: 09/16/2016 11:53 Stage of : Recovery (Nati Hallman, RN) Datetime: 09/16/2016 10:42 Communication Comments: Monitors removed for transport to OR (Nati Hallman, RN) Datetime: 09/16/2016 10:41 Antibiotics: Ancef IV (Gm) @ 2 (Nati Hallman, RN) Datetime: 09/16/2016 10:14 Communication Comments: Dr. Everett at bedside. Baby is not vertex. Plan is for c/s (Nati Hallman, RN) Datetime: 09/16/2016 10:12 Pitocin (milliunit): Pitocin Discontinued (Nati Hallman, RN) Communication Comments: C. Simms CNM doing bedside ultrasound to see if baby is vertex (Nati Hallman, RN) Datetime: 09/16/2016 10:10 Communication Comments: C. Simms CNM at bedside (Nati Hallman, RN) Datetime: 09/16/2016 10:01 I/O Interventions: Up to BR (Nati Hallman, RN) Datetime: 09/16/2016 10:00 Pitocin (milliunit): Pitocin Increased to (milliunits) @ 14 (Nati Hallman RN)
[2016-09-16] MEDS ORDERED: MEPERIDINE HCL/PF INJ 25 MG/1 ML DISP.SYRIN ONE (12:08)
[2016-09-16] MEDS ORDERED: ACETAMINOPHEN 100 ML IV ONE ×2 (12:29→20:30)
[2016-09-16] MEDS ORDERED: OXYTOCIN/NORMAL SALINE 20 UNIT/1,000 ML RTUINJ INJ PRN (12:32)
[2016-09-16] MEDS ORDERED: PROMETHAZINE HCL INJ 25 MG/1 ML VIAL IM PRN (12:32)
[2016-09-16] MEDS ORDERED: ACETAMINOPHEN 325 MG TABLET PO PRN (12:32)
[2016-09-16] MEDS ORDERED: MEASLES,MUMPS&RUBELLA VACC/PF 0.5 ML VIAL SUBCUT PRN (12:32)
[2016-09-16] MEDS ORDERED: SIMETHICONE 80 MG TAB.CHEW PO PRN (12:32)
[2016-09-16] MEDS ORDERED: HYDROMORPHONE HCL INJ/PF 2 MG/ML AMPULE IV PRN (12:32)
[2016-09-16] MEDS ORDERED: DIPH/PERTUSS(ACELL)/TETANUS VAC/PF 0.5 ML SYR (>=10YO) IM PRN (12:32)
[2016-09-16] MEDS ORDERED: KETOROLAC TROMETHAMINE INJ/PF 30 MG/1 ML SDV ONE (12:38)
--- NOTE | 2016-09-16 12:48 | OPERATIVE REPORT E ---
Operative Report NAME: ANUJ NEWTON : 1980 AGE: 36Y DATE OF SURGERY: 09/16/2016 ROOM: LR200 PREOPERATIVE DIAGNOSES: 1. IUP at 34 weeks and 3 days. 2. PPROM. 3. Breech presentation. 4. Undesired fertility. POSTOPERATIVE DIAGNOSES: 1. IUP at 34 weeks and 3 days. 2. PPROM. 3. Breech presentation. 4. Undesired fertility. OPERATIONS: 1. A low transverse hysterotomy section. 2. [place] tubal ligation. SURGEON: ARABELLA HODGE M.D. ANESTHESIA: Dr. Pineda with a spinal. FINDINGS: A female , footling breech, with Apgars of 4 and 8, weight of 2119 gm. Normal uterus, tubes and ovaries. ESTIMATED BLOOD LOSS: 600 mL. TISSUE REMOVED OR ALTERED: The placenta and bilateral fallopian tubes. INDICATIONS: This is a 36-year-old G 4, P 3-0-0-3, who presented at 34 weeks and 3 days with premature rupture of membranes. She was initially thought to be cephalic presentation. However, when the spot machine operator went in to check her for routine cervical check felt an unusual presenting part, and we confirmed by ultrasound that the baby indeed had turned to a breech presentation. The findings at the surgery were consistent with that. The patient was counseled as well as the who was present regarding the risks associated with a vaginal breech delivery. They did consent to a primary section for this since the patient was ruptured and version was not advisable. They also indicated that they did not desire any future childbearing as this was their fourth natural child and they had 1 child who was adopted, so this would make 5 children at home, and they indicated that they would like permanent sterilization. Both the and the were in agreement with that as well, so this was added to the consent for a tubal ligation. PROCEDURE: Patient was taken to the operating room, prepared and draped in a normal sterile fashion in a supine position with a leftward tilt. A transverse skin incision was made with a scalpel and carried through to the underlying layer of fascia. With the same scalpel, the fascia was excised in the midline and extended laterally with Leslie's. The fascia was dissected from the rectus muscle bluntly. The peritoneal cavity was entered bluntly with good visualization of the bladder and the uterus. The bladder blade was inserted. The hysterotomy was cut with a scalpel and extended laterally with bandage scissors due to the slightly undeveloped lower uterine segment. The 's foot was found to be in the vaginal canal, and the 's foot was then brought up into the uterus and delivered through the Pfannenstiel incision. The other foot was then located and delivered as well, and it was recognized at this point that the infant was indeed face up. I was able to turn the infant carefully and deliver both arms once the infant delivered to the scapula and then was able to flex the head and facilitate delivery without any further issue. The nose and mouth were suctioned with a suction bulb, and the cord was clamped and cut. The infant was handed off to waiting pediatricians, and the was vigorously stimulated during this process. The cord blood was collected. The placenta was removed manually. The uterus was exteriorized and cleared of clots and debris. The hysterotomy was closed with 0 Monocryl in a running locked fashion. A second layer of the same suture was used to imbricate to ensure hemostasis. The hysterotomy was inspected and found to be hemostatic. Attention was then turned to the fallopian tubes for the tubal ligation. The right fallopian tube was grasped with a Tatiana, and the mesosalpinx was divided with the Bovie. A generous section of the fallopian tube was then tied off with 2 pieces of 2-0 chromic, and the intermediate section was transected using Metzenbaum's and passed off the field. This was repeated on the left fallopian tube without difficulty. All pedicles were then coagulated with the Bovie to ensure hemostasis. Pedicles were reinspected and found to be hemostatic. The uterus was returned to the abdomen, and the pedicles were once again reinspected and the ties were intact. The peritoneal cavity was cleared of clots and debris. The rectus muscle and peritoneum were reapproximated with a mattress stitch of 2-0 chromic. The fascia was closed with 0 Vicryl. The subcutaneous layer was closed with plain catgut, and the skin was closed with 4-0 Vicryl. Patient tolerated procedure well. Sponge, lap and needle counts were correct x2, and the patient was taken to recovery in stable condition. DICTATING PHYSICIAN: ARABELLA HODGE M.D. [id number] PHY#: [id number] ID: [id number] JOB#: [id number] ACCT: [id number] cc:ARABELLA HODGE M.D. >
[2016-09-16] MEDS ORDERED: ONDANSETRON 4 MG TAB.RAPDIS PO PRN (12:50)
[2016-09-16] MEDS ORDERED: ONDANSETRON HCL INJ/PF 4 MG/2 ML SDV IV PRN (12:51)
--- NOTE | 2016-09-16 13:50 | Admission Physical ---
Datetime Report Generated by CPN: 09/16/2016 13:50 CURRENT ADMISSION Chief Complaint: Uterine Contractions; Suspected Ruptured Membranes Indication for Induction: PROM Admit Plan: Admit to Unit; Initiate Labor Induction Protocol ALLERGIES Medication Allergies: No Medication Allergies: erythromycin base/MO (09/16/2016) Latex: No Latex Allergies Food Allergies: N/A Environmental Allergies: N/A OBSTETRICAL HISTORY EDC: 10/26/2016 00:00 : 4 Para: 3 Term: 3 : 0 SAB: 0 IAB: 0 Ectopic: 0 Livin Cesareans: 0 VBACs: 0 Multiple Births: 0 Gestational Diabetes: Yes Rh Sensitization: No Incompetent Cervix: No HELENA: No Infertility: No ART Treatment: No Uterine Anomaly: No IUGR: No Hx Previous C/S: No Macrosomia: No Hx Loss/Stillborn: No PIH: No Hx : No Placenta Previa/Abruption: No Depression/PP Depression: No PTL/PROM: No Post Hemorrhage: No Current Procedures: Ultrasound; NST Obstetrical History Comments: G1: 2003 41-42 week baby boy, 4.5 hours labor, 6 lb 13 oz, IOL G2: 2006 41-42 week baby boy, 5-6 hours labor, 8 lb 8 oz, IOL G3: 2010 37 week baby boy, 1.5 hour labor, 6 lb 13 oz G4: Current, GDM, AMA SEE RECORDS Alcohol: No Marijuana : No Cocaine: No Other Illicit Drugs: No Cigarettes: Never Smoker. 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 Surgery: No Heart Disease: No Hosp/Surgery: No Autoimmune Disorder: No Anesthetic Complications: No Kidney Disease: No Abnormal Pap Smear: No Neuro/Epilepsy: No Psychiatric Disorders: No Other Medical Diseases: No Hepatitis/Liver Disease: No Significant Family History: No Varicosities/Phlebitis: No Trauma/Violence : No Thyroid Dysfunction: Yes Medical History Comments: GDM: Diet contolled Thyroid: Hypothyroid on Synthroid Asthma: Albuterol PRN, Flovent daily Other: Migraines; Fioricet/Topomax/Imitrex INFECTIOUS HISTORY Gonorrhea: No Genital Herpes: No Chlamydia: No Tuberculosis: No Syphilis: No Hepatitis: No HIV/AIDS Exposure: No Rash or Viral Illness: No HPV: No PHYSICAL EXAM General: Normal HEENT: Normal Neurologic: Normal Thyroid: Normal Heart: Normal Lungs: Normal Breast: Deferred Back: Normal Abdomen: Normal Genitourinary Exam: Normal Extremities: Normal DTRs: Normal Pelvic Type: Adequate Vital Signs: Reviewed; Within Normal Limits VAGINAL EXAM Dilatation: 1 Effacement: 50 Station: -3 MEMBRANES Pooling: Positive [place] Results: Positive Membranes: Ruptured Amniotic Fluid Color: Clear FETUS A EGA: 34.2 Monitoring: External US FHR- Baseline: 150 Variability: Moderate 6-25bpm Accelerations: 15X15 Decelerations: None Presentation: Vertex Admit Comment: 36yo at 34+2ega presents with PPROM at 1930 with clear fluid. Pt with continual leaking of fluid. Cvx /-3. Pelvis proven to 8#8oz. PCN for GBS prophy as GBS unknown. Anticipate . EFW 4-5#. vertex presentation on last US 09/02. Pelvis adequate for LILLIAN. Proceed with IOL for PPROM with pitocin. PLANS FOR LABOR AND DELIVERY Labor and Delivery: None Pain Management: Epidural Feeding Preference: Breast Benefit of Breast Feed Discussed: Yes Circumcision: N/A INFORMED CONSENT Informed Consent Obtained: Vaginal Delivery; Risks, Benefits and Alternatives Discussed Signature: with User ID: [email or web address]
--- NOTE | 2016-09-16 14:00 | L&D Flow Sheet ---
LD Flowsheet Datetime Report Generated by CPN: 09/16/2016 14:00 Datetime: 09/16/2016 13:31 Patient Care Comments: 300ml clear yellow urine emptied from [place] (Nati Hallman, RN) Datetime: 09/16/2016 13:29 NBP Sys/Penny/Mean (mmHg): 107 (QS system process) : 59 (QS system process) : 78 (QS system process) Pulse: 86 (QS system process) Datetime: 09/16/2016 13:15 Stage of : Recovery (Nati Hallman, RN) Pain Scale: 4 (Nati Hallman, RN) Pain Presence: Constant (Nati Hallman, RN) Pain Type: Burning; Cramping; Pressure; Ache (Nati Hallman, RN) Pain Location: Abdomen (Nati Hallman, RN) Datetime: 09/16/2016 13:14 NBP Sys/Penny/Mean (mmHg): 110 (QS system process) : 63 (QS system process) : 80 (QS system process) Pulse: 77 (QS system process) Datetime: 09/16/2016 13:00 Stage of : Recovery (Nati Hallman RN) Pain Scale: 3 (Nati Hallman RN) Pain Presence: Constant (Nati Hallman RN) Pain Type: Burning; Cramping; Pressure; Ache (Nati Hallman RN) Pain Location: Abdomen (Nati Hallman RN) Datetime: 09/16/2016 12:59 NBP Sys/Penny/Mean (mmHg): 115 (QS system process) : 64 (QS system process) : 82 (QS system process) Pulse: 95 (QS system process) Datetime: 09/16/2016 12:45 Stage of : Recovery (Nati Hallman RN) Pain Scale: 3 (Nati Hallman RN) Pain Presence: Constant (Nati Hallman RN) Pain Type: Burning; Cramping; Pressure; Ache (Nati Hallman RN) Pain Location: Abdomen (Nati Hallman RN) Datetime: 09/16/2016 12:44 NBP Sys/Penny/Mean (mmHg): 123 (QS system process) : 66 (QS system process) : 88 (QS system process) Pulse: 93 (QS system process) Datetime: 09/16/2016 12:39 Pain Scale: 3 (Nati Hallman, RN) Pain Presence: Constant (Nati Hallman, RN) Pain Type: Burning; Cramping; Pressure; Ache (Nati Hallman, RN) Pain Location: Abdomen (Nati Hallman, RN) Datetime: 09/16/2016 12:30 Stage of : Recovery (Nati Hallman, RN) Pain Scale: 3 (Nati Hallman, RN) Pain Presence: Constant (Nati Hallman RN) Pain Type: Burning; Cramping; Pressure; Ache (Nati Hallman RN) Pain Location: Abdomen (Nati Hallman RN) Datetime: 09/16/2016 12:29 NBP Sys/Penny/Mean (mmHg): 121 (QS system process) : 62 (QS system process) : 83 (QS system process) Pulse: 77 (QS system process) Datetime: 09/16/2016 12:15 Stage of : Recovery (Nati Hallman RN) Pain Scale: 1 (Nati Hallman RN) Pain Presence: Constant (Nati Hallman RN) Pain Type: Burning; Cramping; Pressure (Nati Hallman RN) Pain Location: Abdomen (Nati Hallman RN) Datetime: 09/16/2016 12:14 Pulse: 80 (QS system process) SpO2 (%): 96 (QS system process) Datetime: 09/16/2016 12:13 NBP Sys/Penny/Mean (mmHg): 139 (QS system process) : 82 (QS system process) : 95 (QS system process) Pulse: 75 (QS system process) Datetime: 09/16/2016 12:09 Pulse: 77 (QS system process) SpO2 (%): 97 (QS system process) Datetime: 09/16/2016 12:08 NBP Sys/Penny/Mean (mmHg): 118 (QS system process) : 61 (QS system process) : 84 (QS system process) Pulse: 74 (QS system process) Datetime: 09/16/2016 12:04 Pulse: 81 (QS system process) SpO2 (%): 96 (QS system process) Datetime: 09/16/2016 12:03 NBP Sys/Penny/Mean (mmHg): 114 (QS system process) : 61 (QS system process) : 82 (QS system process) Pulse: 95 (QS system process) Datetime: 09/16/2016 12:00 Stage of : Recovery (Nati Hallman RN) Respirations: 14 (Nati Hallman RN) Temperature (F): 98.5 (Nati Hallman RN) Temperature (C): 36.9 (QS system process) Temperature Route: Oral (Nati Hallman RN) Pain Scale: 1 (Nati Hallman RN) Pain Presence: Constant (Nati Hallman RN) Pain Type: Cramping; Pressure; Ache (Nati Hallman RN) Pain Location: Abdomen (Nati Hallman RN)
[2016-09-16] MEDS: MORPHINE SULFATE 10 MG/ML INJ IV PRN ×2 (14:38→18:18)
--- NOTE | 2016-09-16 16:15 | Delivery Summary ---
Del Sum A-C Datetime Report Generated by CPN: 09/16/2016 16:14 ADMISSION DATA Chief Complaint: Uterine Contractions; Suspected Ruptured Membranes Indication for Induction: PROM Admission Impression: , Intrauterine ; No Active Labor; Ruptured Membranes; Induction of Labor Admit Provider Comments: 36yo at 34+2ega presents with PPROM at 1930 with clear fluid. Pt with continual leaking of fluid. Cvx 50/-3. Pelvis proven to 8#8oz. PCN for GBS prophy as GBS unknown. Anticipate . EFW 4-5#. vertex presentation on last US 09/02. Pelvis adequate for LILLIAN. Proceed with IOL for PPROM with pitocin. DELIVERY PERSONNEL Delivery Doctor:: Kamla Floyd MD Anesthesiologist:: Marisa Pineda MD BINDERY MACHINE OPERATOR:: Marielle Singleton CRNA Labor and Delivery Nurse:: Nati Hallman RN Chemical Cell Changer:: Jalen Love MD Nursery Nurse:: Sruthi Law RN Optics Engineer/JOB TRAINING SPECIALIST: Hector Ram Optics Engineer/JOB TRAINING SPECIALIST: Didi Castillo, COMMUNITY PLANNER MATERNAL INFORMATION Delivery Anesthesia: Spinal Medications After Delivery: Pitocin Bolus-Please Comment; Pitocin Drip 20 Units/1000ml NSS Estimated Blood Loss (ml): 600 Maternal Complications: Premature Rupture of Membranes LABOR SUMMARY EDC: 10/26/2016 00:00 No. Babies in Womb: 1 Attempted: No Labor Anesthesia: None LABOR INFORMATION Reason for Induction: Not Applicable Onset of Labor: 09/16/2016 03:30 Oxytocin: Augmentation Group B Beta Strep: unknown Antibiotics # of Doses: 3 Antibiotics Time of Last Dose: 0630 Name of Antibiotic Given: PCN Steroids Given: None Reason Steroids Not Administered: Not Applicable MEMBRANES Membranes Rupture Method: Spontaneous Rupture of Membranes: 09/15/2016 19:45 Length of Rupture (hr): 15.55 Amniotic Fluid Color: Clear Amniotic Fluid Amount: Moderate Amniotic Fluid Odor: Normal STAGES OF LABOR Stage 3 hr: 0 Stage 3 min: 1 Total Time in Labor hr: 7 Total Time in Labor min: 49 VAGINAL DELIVERY Episiotomy: None Laceration Extension: N/A Laceration Type: None Laceration Repair: Not Applicable CSECTION DELIVERY Primary Indication: Breech Presentation Secondary Indication: N/A CSection Urgency: Non-Scheduled CSection Incidence: Primary Labor: Labor Elective: Nonelective CSection Incision: Lower Uterine Transverse BABY A INFORMATION Delivery Date/Time: 09/16/2016 11:18 Method of Delivery: Born in Route : No : N/A Forceps: N/A Vacuum Extraction: N/A Shoulder Dystocia : No PRESENTATION/POSITION BABY A Presentation: Breech Cephalic Presentation: N/A Breech Presentation: Single Footling PLACENTA INFORMATION BABY A Placenta Delivery Time : 09/16/2016 11:19 Placenta Method of Delivery: Manual Removal Placenta Status: Delivered SCORES BABY A Heart Rate 1 min: >100 bpm Resp Effort 1 min: Absent Reflex Irritability 1 min: Cough or Sneeze or Pulls Away Muscle Tone 1 min: Flaccid Color 1 min: Blue/Pale Resuscitation Effort 1 min: Tactile Stimulation; Oxygen; PPV/NCPAP SCORE 1 MIN: 4 Heart Rate 5 min: >100 bpm Resp Effort 5 min: Slow, Irregular Reflex Irritability 5 min: Cough or Sneeze or Pulls Away Muscle Tone 5 min: Active Motion Color 5 min: Body [place], Extremities Blue Resuscitation Effort 5 min: Oxygen SCORE 5 MIN: 8 INFANT INFORMATION BABY A Gestational Age at Delivery: 34.2 Gestational Status: Late - 34- 36.6 Weeks Outcome : Liveborn Infant Condition : Stable Sex: Female IDENTIFICATION BABY A Verification Date/Time: 09/16/2016 11:20 ID Band Number: [id number] Mother's Name Verified: Yes Infant RN Verifying Infant: Ash Hallman JULISSA Edmondson RN WEIGHT/LENGTH BABY A Infant Birthweight (gm): 2119 Weight (lb): 4 Infant Weight (oz): 11 Infant Length (in): 18.00 Length (cm): 45.72 CORD INFORMATION BABY A No. Cord Vessels: 3 Nuchal Cord : N/A Cord Blood Taken: Yes-For Storage (Mom's Blood type +) Suction: Mouth; Nose ASSESSMENT BABY A Infant Complications: Multiple Variable Decels Physical Findings at Delivery: Within Normal Limits Infant Respirations: Grunting; Intercostal Retractions; Nasal Flaring; Sternal Retractions Skin to Skin: No Chemical Cell Changer/ALS Called : Yes Infant Care By: Asim Law RN, Dr Love Transferred To: NICU BABY B INFORMATION : N/A
[2016-09-16] MEDS ORDERED: ALBUTEROL SULFATE HFA (90 MCG/PUFF) 8 GM MDI (1 MDI/ER DISP) IH PRN (16:37)
[2016-09-16] MEDS ORDERED: ALBUTEROL SULFATE HFA (90 MCG/PUFF) 200 PUFF/8.5 GM MDI IH PRN (16:43)
[2016-09-16] MEDS: KETOROLAC TROMETHAMINE INJ/PF 30 MG/1 ML SDV IV SCH (17:35)
[2016-09-16] MEDS: DOCUSATE SODIUM 100 MG CAPSULE PO SCH (17:36)
--- NOTE | 2016-09-16 19:00 | L&D Flow Sheet ---
LD Flowsheet Datetime Report Generated by CPN: 09/16/2016 19:00 Datetime: 09/16/2016 13:31 Patient Care Comments: 300ml clear yellow urine emptied from [place] (Nati Hallman, RN) Datetime: 09/16/2016 13:29 NBP Sys/Penny/Mean (mmHg): 107 (QS system process) : 59 (QS system process) : 78 (QS system process) Pulse: 86 (QS system process) Datetime: 09/16/2016 13:15 Stage of : Recovery (Nati Hallman, RN) Pain Scale: 4 (Nati Hallman, RN) Pain Presence: Constant (Nati Hallman, RN) Pain Type: Burning; Cramping; Pressure; Ache (Nati Hallman, RN) Pain Location: Abdomen (Nati Hallman, RN) Datetime: 09/16/2016 13:14 NBP Sys/Penny/Mean (mmHg): 110 (QS system process) : 63 (QS system process) : 80 (QS system process) Pulse: 77 (QS system process) Datetime: 09/16/2016 13:00 Stage of : Recovery (Nati Hallman RN) Pain Scale: 3 (Nati Hallman RN) Pain Presence: Constant (Nati Hallman RN) Pain Type: Burning; Cramping; Pressure; Ache (Nati Hallman RN) Pain Location: Abdomen (Nati Hallman RN) Datetime: 09/16/2016 12:59 NBP Sys/Penny/Mean (mmHg): 115 (QS system process) : 64 (QS system process) : 82 (QS system process) Pulse: 95 (QS system process) Datetime: 09/16/2016 12:45 Stage of : Recovery (Nati Hallman RN) Pain Scale: 3 (Nati Hallman RN) Pain Presence: Constant (Nati Hallman RN) Pain Type: Burning; Cramping; Pressure; Ache (Nati Hallman RN) Pain Location: Abdomen (Nati Hallman RN) Datetime: 09/16/2016 12:44 NBP Sys/Penny/Mean (mmHg): 123 (QS system process) : 66 (QS system process) : 88 (QS system process) Pulse: 93 (QS system process) Datetime: 09/16/2016 12:39 Pain Scale: 3 (Nati Hallman, RN) Pain Presence: Constant (Nati Hallman, RN) Pain Type: Burning; Cramping; Pressure; Ache (Nati Hallman, RN) Pain Location: Abdomen (Nati Hallman, RN) Datetime: 09/16/2016 12:30 Stage of : Recovery (Nati Hallman, RN) Pain Scale: 3 (Nati Hallman, RN) Pain Presence: Constant (Nati Hallman RN) Pain Type: Burning; Cramping; Pressure; Ache (Nati Hallman RN) Pain Location: Abdomen (Nati Hallman RN) Datetime: 09/16/2016 12:29 NBP Sys/Penny/Mean (mmHg): 121 (QS system process) : 62 (QS system process) : 83 (QS system process) Pulse: 77 (QS system process) Datetime: 09/16/2016 12:15 Stage of : Recovery (Nati Hallman RN) Pain Scale: 1 (Nati Hallman RN) Pain Presence: Constant (Nati Hallman RN) Pain Type: Burning; Cramping; Pressure (Nati Hallman RN) Pain Location: Abdomen (Nati Hallman RN) Datetime: 09/16/2016 12:14 Pulse: 80 (QS system process) SpO2 (%): 96 (QS system process) Datetime: 09/16/2016 12:13 NBP Sys/Penny/Mean (mmHg): 139 (QS system process) : 82 (QS system process) : 95 (QS system process) Pulse: 75 (QS system process) Datetime: 09/16/2016 12:09 Pulse: 77 (QS system process) SpO2 (%): 97 (QS system process) Datetime: 09/16/2016 12:08 NBP Sys/Penny/Mean (mmHg): 118 (QS system process) : 61 (QS system process) : 84 (QS system process) Pulse: 74 (QS system process) Datetime: 09/16/2016 12:04 Pulse: 81 (QS system process) SpO2 (%): 96 (QS system process) Datetime: 09/16/2016 12:03 NBP Sys/Penny/Mean (mmHg): 114 (QS system process) : 61 (QS system process) : 82 (QS system process) Pulse: 95 (QS system process) Datetime: 09/16/2016 12:00 Stage of : Recovery (Nati Hallman RN) Respirations: 14 (Nati Hallman RN) Temperature (F): 98.5 (Nati Hallman RN) Temperature (C): 36.9 (QS system process) Temperature Route: Oral (Nati Hallman RN) Pain Scale: 1 (Nati Hallman RN) Pain Presence: Constant (Nati Hallman RN) Pain Type: Cramping; Pressure; Ache (Nati Hallman RN) Pain Location: Abdomen (Nati Hallman RN) Datetime: 09/16/2016 11:59 Pulse: 83 (QS system process) SpO2 (%): 98 (QS system process) Datetime: 09/16/2016 11:57 NBP Sys/Penny/Mean (mmHg): 109 (QS system process) : 55 (QS system process) : 76 (QS system process) Datetime: 09/16/2016 11:54 Pulse: 102 (QS system process) Pulse: 96 (QS system process) SpO2 (%): 93 (QS system process) Datetime: 09/16/2016 11:53 Stage of : Recovery (Nati Hallman, RN) Datetime: 09/16/2016 10:42 Communication Comments: Monitors removed for transport to OR (Nati Hallman, RN) Datetime: 09/16/2016 10:41 Antibiotics: Ancef IV (Gm) @ 2 (Nati Hallman, RN) Datetime: 09/16/2016 10:40 I/O Interventions: [place] Cath Inserted (Nati Hallman, RN) Datetime: 09/16/2016 10:29 Comments: unable to determine due to pt position (Nati Hallman, RN) Datetime: 09/16/2016 10:15 Monitor Mode: External; Palpation (Nati Hallman RN) Frequency (min): 1.5-2.5 (Nati Hallman RN) Quality: Mild/Moderate (Nati Hallman RN) Duration (sec): 40-60 (Nati Hallman RN) Resting Tone (Palpate): Relaxed (Nati Hallman, RN) Monitor Mode: External US (Nati Hallman, RN) FHR Baseline Rate : 150 (Nati Hallman, RN) Variability: Minimal - Undetectable to <=5 bpm (Nati Hallman, RN) Accelerations: None (Nati Hallman, RN) Decelerations: Variable (Nati Hallman, RN) Datetime: 09/16/2016 10:14 Communication Comments: Dr. Floyd at bedside. Baby is not vertex. Plan is for c/s (Nati Hallman RN) Datetime: 09/16/2016 10:12 Pitocin (milliunit): Pitocin Discontinued (Nati Hallman, RN) Communication Comments: C. Simms CNM doing bedside ultrasound to see if baby is vertex (Nati Hallman, RN) Datetime: 09/16/2016 10:10 Monitor Interventions for UA: Evans Adjusted (Nati Hallman, RN) Communication Comments: C. Simms CNM at bedside (Nati Hallman, RN) Datetime: 09/16/2016 10:08 Comments: Pt sitting straight up in bed, tracing maternal HR (Nati Hallman, RN) Datetime: 09/16/2016 10:01 I/O Interventions: Up to BR (Nati Hallman RN) Datetime: 09/16/2016 10:00 Monitor Mode: External (Nati Hallman RN) Frequency (min): 1.5-2.5 (Nati Hallman RN) Quality: Mild/Moderate (Nati Hallman RN) Duration (sec): 40-70 (Nati Hallman RN) Resting Tone (Palpate): Relaxed (Nati Hallman RN) Monitor Mode: External US (Nati Hallman RN) FHR Baseline Rate : 150 (Nati Hallman RN) Variability: Moderate 6-25 bpm (Nati Hallman RN) Accelerations: 10X10 (Nati Hallman RN) Decelerations: None (Nati Hallman, RN) Pitocin (milliunit): Pitocin Increased to (milliunits) @ 14 (Nati Hallman RN) Datetime: 09/16/2016 09:55 NBP Sys/Penny/Mean (mmHg): 129 (QS system process) : 76 (QS system process) : 95 (QS system process) Pulse: 100 (QS system process) LaborFlag: Antepartum (QS system process) Datetime: 09/16/2016 09:45 Monitor Mode: External; Palpation (Nati Hallman RN) Frequency (min): 1.5-2.5 (Nati Hallman RN) Quality: Mild/Moderate (Nati Hallman RN) Duration (sec): 40-50 (Nati Hallman RN) Resting Tone (Palpate): Relaxed (Nati Hallman RN) Monitor Mode: External US (Nati Hallman RN) FHR Baseline Rate : 155 (Nati Hallman RN) Variability: Minimal - Undetectable to <=5 bpm (Nati Hallman RN) Accelerations: None (Nati Hallman RN) Decelerations: Variable (Nati Hallman RN) Pitocin (milliunit): Pitocin Remains (milliunits) @ 12 (Nati Hallman RN) Datetime: 09/16/2016 09:40 NBP Sys/Penny/Mean (mmHg): 125 (QS system process) : 74 (QS system process) : 93 (QS system process) Pulse: 98 (QS system process) LaborFlag: Antepartum (QS system process) Datetime: 09/16/2016 09:30 Monitor Mode: External; Palpation (Nati Hallman RN) Frequency (min): 3-4 (Nati Hallman RN) Quality: Mild (Nati Hallman RN) Duration (sec): 50-60 (Nati Hallman RN) Resting Tone (Palpate): Relaxed (Nati Hallman RN) Monitor Mode: External US (Nati Hallman RN) FHR Baseline Rate : 155 (Nati Hallman RN) Variability: Moderate 6-25 bpm (Nati Hallman RN) Accelerations: None (Nati Hallman RN) Decelerations: Variable (Nati Hallman RN) Pitocin (milliunit): Pitocin Increased to (milliunits) @ 12 (Nati Hallman RN) Datetime: 09/16/2016 09:26 NBP Sys/Penny/Mean (mmHg): 128 (QS system process) : 71 (QS system process) : 93 (QS system process) Pulse: 100 (QS system process) I/O Interventions: Popsicle (Natilaurie Hallman, RN) LaborFlag: Antepartum (QS system process) Datetime: 09/16/2016 09:24 Bedside Blood Glucose: 84 (QS system process) LaborFlag: Antepartum (QS system process) Datetime: 09/16/2016 09:20 Monitor Interventions for UA: Evans Adjusted (Nati Lexx, RN) Datetime: 09/16/2016 09:18 Patient Position/Activity: Right Lateral (Nati Hallman, RN) Datetime: 09/16/2016 09:15 Monitor Mode: External; Palpation (Nati Hallman RN) Quality: Mild (Nati Hallman RN) Resting Tone (Palpate): Relaxed (Nati Hallman RN) Contraction Comments: contractions not tracing on monitor, attempting to troubleshoot (Nati Hallman RN) Monitor Mode: External US (Nati Hallman RN) FHR Baseline Rate : 150 (Nati Hallman RN) Variability: Moderate 6-25 bpm (Nati Hallman RN) Accelerations: 10X10 (Nati Hallman RN) Decelerations: Variable (Nati Hallman RN) Pitocin (milliunit): Pitocin Increased to (milliunits) @ 10 (Nati Hallman RN) Datetime: 09/16/2016 09:13 Monitor Interventions for UA: Evans Adjusted (Nati Hallman RN) Datetime: 09/16/2016 09:10 NBP Sys/Penny/Mean (mmHg): 108 (QS system process) : 57 (QS system process) : 77 (QS system process) Pulse: 89 (QS system process) LaborFlag: Antepartum (QS system process) Datetime: 09/16/2016 09:00 Monitor Mode: External; Palpation (Nati Hallman RN) Resting Tone (Palpate): Relaxed (Nati Hallman RN) Contraction Comments: contractions not tracing on monitor, repositioning toco (Nati Hallman RN) Monitor Mode: External US (Nati Hallman RN) FHR Baseline Rate : 155 (Nati Hallman RN) Variability: Minimal - Undetectable to <=5 bpm (Nati Hallman RN) Accelerations: 10X10 (Nati Hallman RN) Decelerations: None (Nati Hallman RN) Pitocin (milliunit): Pitocin Remains (milliunits) @ 8 (Nati Hallman, RN) Datetime: 09/16/2016 08:55 NBP Sys/Penny/Mean (mmHg): 107 (QS system process) : 59 (QS system process) : 75 (QS system process) Pulse: 93 (QS system process) LaborFlag: Antepartum (QS system process) Datetime: 09/16/2016 08:49 Monitor Interventions for UA: Evans Adjusted (Nati Hallman, RN) Datetime: 09/16/2016 08:46 Monitor Interventions for UA: Evans Adjusted (Nati Hallman, RN) Datetime: 09/16/2016 08:45 Monitor Mode: External; Palpation (Nati Hallman RN) Quality: Mild (Nati Hallman RN) Duration Criteria: Less than Two 120 Second Contractions (Nati Hallman RN) Pattern: Normal: <= 5 Contractions in 10 Minutes (Nati Hallman RN) Resting Tone (Palpate): Relaxed (Nati Hallman RN) Contraction Comments: contractions not tracing on monitor, pt states she feels them 4 minutes apart. Mild contraction palpated (Nati Hallman RN) Monitor Mode: External US (Nati Hallman RN) FHR Baseline Rate : 155 (Nati Hallman RN) Variability: Moderate 6-25 bpm (Nati Hallman RN) Accelerations: 10X10 (Nati Hallman RN) Decelerations: Variable (Nati Hallman RN) Pitocin (milliunit): Pitocin Increased to (milliunits) @ 8 (Nati Hallman RN) Datetime: 09/16/2016 08:40 NBP Sys/Penny/Mean (mmHg): 101 (QS system process) : 59 (QS system process) : 76 (QS system process) Pulse: 84 (QS system process) LaborFlag: Antepartum (QS system process) Datetime: 09/16/2016 08:30 Monitor Mode: External (Nati Hallman RN) Quality: Mild (Nati Hallman RN) Resting Tone (Palpate): Relaxed (Nati Hallman RN) Contraction Comments: contractions not tracing on monitor, pt states she is feeling them about 5 minutes apart (Nati Hallman RN) Monitor Mode: External US (Nati Hallman RN) FHR Baseline Rate : 155 (Nati Hallman RN) Variability: Moderate 6-25 bpm (Nati Hallman RN) Accelerations: 15X15 (Nati Hallman RN) Decelerations: Variable (Nati Hallman RN) Pitocin (milliunit): Pitocin Increased to (milliunits) @ 6 (Nati Hallman RN) Medication Comments: Increase Pitocin per C. Simms CNM (Nati Hallman RN) Datetime: 09/16/2016 08:25 NBP Sys/Penny/Mean (mmHg): 102 (QS system process) : 59 (QS system process) : 74 (QS system process) Pulse: 91 (QS system process) LaborFlag: Antepartum (QS system process) Datetime: 09/16/2016 08:19 I/O Interventions: Clear Liquids Given (Nati Hallman, RN) Datetime: 09/16/2016 08:16 Monitor Interventions for UA: Evans Adjusted (Nati Hallman, RN) Antiemetics/Antacids: Bicitra 15 ml PO (Nati Hallman, RN) Datetime: 09/16/2016 08:15 Monitor Mode: External (Nati Hallman RN) Resting Tone (Palpate): Relaxed (Nati Hallman RN) Contraction Comments: contractions not tracing on monitor (Nati Hallman RN) Monitor Mode: External US (Nati Hallman RN) FHR Baseline Rate : 155 (Nati Hallman RN) Variability: Moderate 6-25 bpm (Nati Hallman RN) Accelerations: None (Nati Hallman RN) Decelerations: Variable (Nati Hallman RN) Pitocin (milliunit): Pitocin Remains (milliunits) @ 4 (Nati Hallman RN) Datetime: 09/16/2016 08:13 Patient Position/Activity: Left Lateral (Nati Hallman, JULISSA) Datetime: 09/16/2016 08:00 Respirations: 16 (Nati Hallman RN) Temperature (F): 98.5 (Nati Hallman RN) Temperature (C): 36.9 (QS system process) Monitor Mode: External (Nati Hallman RN) Resting Tone (Palpate): Relaxed (Nati Hallman RN) Contraction Comments: contractions not tracing on monitor (Nati Hallman RN) Monitor Mode: External US (Nati Hallman RN) FHR Baseline Rate : 155 (Nati Hallman RN) Variability: Moderate 6-25 bpm (Nati Hallman RN) Accelerations: None (Nati Hallman RN) Decelerations: Variable (Nati Hallman RN) Pain Presence: None/Denies (Nati Hallman RN) Pitocin (milliunit): Pitocin Remains (milliunits) @ 4 (Nati Hallman RN) LaborFlag: Antepartum (QS system process) Datetime: 09/16/2016 07:52 Pulse: 92 (QS system process) SpO2 (%): 99 (QS system process) LaborFlag: Antepartum (QS system process) Datetime: 09/16/2016 07:49 Pulse: 97 (QS system process) SpO2 (%): 93 (QS system process) LaborFlag: Antepartum (QS system process) Datetime: 09/16/2016 07:47 Pulse: 98 (QS system process) SpO2 (%): 99 (QS system process) LaborFlag: Antepartum (QS system process) Datetime: 09/16/2016 07:45 Comments: unable to determine at this time due to pt position. RN at bedside adjusting monitors (Nati Hallman RN) Pitocin (milliunit): Pitocin Remains (milliunits) @ 4 (Nati Hallman RN) Datetime: 09/16/2016 07:42 Pulse: 105 (QS system process) Pulse: 103 (QS system process) SpO2 (%): 87 (QS system process) SpO2 (%): 89 (QS system process) LaborFlag: Antepartum (QS system process) Datetime: 09/16/2016 07:37 Pulse: 106 (QS system process) SpO2 (%): 100 (QS system process) LaborFlag: Antepartum (QS system process) Datetime: 09/16/2016 07:34 Monitor Interventions for FHR: Ultrasound Adjusted (Nati Hallman RN) Patient Position/Activity: Hands-Knees (Nati Hallman RN) Communication: RN at Bedside (Nati Hallman RN) Datetime: 09/16/2016 07:30 Monitor Mode: External (Nati Hallman RN) Resting Tone (Palpate): Relaxed (Nati Hallman RN) Contraction Comments: contractions not tracing on monitor (Nati Hallman RN) Monitor Mode: External US (Nati Hallman RN) FHR Baseline Rate : 150 (Nati Hallman RN) Variability: Moderate 6-25 bpm (Nati Hallman RN) Accelerations: None (Nati Hallman RN) Decelerations: Variable (Nati Hallman RN) Level of Consciousness: Fully Conscious (Nati Hallman RN) DTR's/Clonus: DTRs 2+; No Clonus (Nati Hallman RN) Headache: Denies (Nati Hallman RN) Breath Sounds, Left: Clear and Equal (Nati Hallman RN) Breath Sounds, Right: Clear and Equal (aNti Hallman RN) Nausea/Vomiting: Denies (Nati Hallman RN) RUQ Epigastric Pain: Denies (Nati Hallman RN) Pitocin (milliunit): Pitocin Remains (milliunits) @ 4 (Nati Hallman RN) I/O Interventions: Up to BR (Nati Hallman RN) Datetime: 09/16/2016 07:28 Pulse: 93 (QS system process) SpO2 (%): 100 (QS system process) LaborFlag: Antepartum (QS system process) Datetime: 09/16/2016 07:23 Pulse: 87 (QS system process) SpO2 (%): 100 (QS system process) LaborFlag: Antepartum (QS system process) Datetime: 09/16/2016 07:18 Pulse: 93 (QS system process) SpO2 (%): 99 (QS system process) LaborFlag: Antepartum (QS system process) Datetime: 09/16/2016 07:15 Monitor Mode: External (Nati Hallman RN) Frequency (min): occasional (Nati Hallman RN) Quality: Mild (Nati Hallman RN) Resting Tone (Palpate): Relaxed (Nati Hallman RN) Monitor Mode: External US (Nati Hallman RN) FHR Baseline Rate : 145 (Nati Hallman RN) Variability: Moderate 6-25 bpm (Nati Hallman, RN) Accelerations: 10X10 (Nati Hallman, RN) Decelerations: Variable (Nati Hallman, RN) Pitocin (milliunit): Pitocin Remains (milliunits) @ 4 (Nati Hallman, RN) Datetime: 09/16/2016 07:13 Pulse: 99 (QS system process) SpO2 (%): 99 (QS system process) LaborFlag: Antepartum (QS system process) Datetime: 09/16/2016 07:08 Pulse: 103 (QS system process) SpO2 (%): 100 (QS system process) LaborFlag: Antepartum (QS system process) Datetime: 09/16/2016 07:04 Patient Care Comments: D5LR bolus per orders from Dr Rocha (Monae Christa, RN) Datetime: 09/16/2016 07:03 Pulse: 97 (QS system process) SpO2 (%): 100 (QS system process) LaborFlag: Antepartum (QS system process) Datetime: 09/16/2016 07:02 Monitor Interventions for UA: Evans Adjusted (Monae Christa, RN) Datetime: 09/16/2016 07:00 Monitor Mode: External; Palpation (Monae Goodwin RN) Frequency (min): 3-4 (Monae Goodwin RN) Quality: Mild (Monae Goodwin RN) Duration (sec): 50-80 (Monae Goodwin RN) Resting Tone (Palpate): Relaxed (Monae Goodwin RN) Monitor Mode: External US (Monae Goodwin RN) FHR Baseline Rate : 145 (Monae Goodwin RN) Variability: Moderate 6-25 bpm (Monae Goodwin RN) Accelerations: None (Monae Goodwin RN) Decelerations: Variable (Monae Goodwin RN) Pitocin (milliunit): Pitocin Remains (milliunits) @ (Annotations: 4 ) (Monae Goodwin RN)
[2016-09-16] MEDS: OXYCODONE-ACETAMINOPHEN 5-325 MG TABLET PO PRN (21:10)
[2016-09-17] MEDS: KETOROLAC TROMETHAMINE INJ/PF 30 MG/1 ML SDV IV SCH ×2 (02:14→12:28)
[2016-09-17] MEDS: OXYCODONE-ACETAMINOPHEN 5-325 MG TABLET PO PRN ×4 (02:15→21:15)
--- NOTE | 2016-09-17 06:01 | L&D Current Admission ---
Current Admit Datetime Report Generated by CPN: 09/17/2016 06:00 ADMISSION INFORMATION Current Admit Date/Time: 09/15/2016 23:11 (09/15/2016 23:11:Sindi Rodriguez RN) Reason for Admission: Rupture of Membranes (09/15/2016 23:11:Sindi Rodriguez RN) Chief Complaint: Suspected Rupture of Membranes (09/15/2016 23:12:Sindi Rodriguez RN) Medications During : Vitamin (09/15/2016 23:11:Shadia Temple RN) EGA per Dates: 34.2 (09/15/2016 23:11:QS system process) Method of Arrival: Wheelchair (09/15/2016 23:11:Sindi Rodriguez RN) Admitted From: Home (09/15/2016 23:11:Shadia Temple RN) Reason for Induction: Not Applicable (09/15/2016 23:11:Sindi Rodriguez RN) Records Available: Yes (09/15/2016 23:11:Sindi Rodriguez RN) General Admission Information: Reviewed (09/15/2016 23:11:Sindi Rodriguez RN) BELONGINGS/ADVANCED DIRECTIVES Comments Regarding Disposition: see [facility] consent form (09/15/2016 23:11:Sindi Rodriguez RN) Advance Direct for Healthcare: No, and Wants No Information (09/15/2016 23:11:Sindi Rodriguez RN) Durable Power of Supervisor Coin Machine: Yes (09/15/2016 23:11:Sindi Rodriguez RN) Living Will: No (09/15/2016 23:11:Sindi Rodriguez RN) Organ Donor: Yes (09/15/2016 23:11:Sindi Rodriguez RN) Pt Rights Information Given: Yes (09/15/2016 23:11:Sindi Rodriguez RN) Pt Understands Pt Rights: Yes (09/15/2016 23:11:Sindi Rodriguez RN) LEARNING ASSESSMENT Knowledge Level: Understands L_D Process; Understands Care Activities; Understands Diagnosis (09/15/2016 23:11:Sindi Rodriguez RN) Barriers to Learning: None (09/15/2016 23:11:Sindi Rodriguez RN) Learning Readiness: Motivated (09/15/2016 23:11:Sindi Rodriguez RN) Learns Best By: 1 to 1 Instruction (09/15/2016 23:11:Sindi Rodriguez RN) Learning Needs: Labor and Delivery Process; Pain Management; Symptoms to Report; Treatment Plan; Medication; Diagnosis; Nutrition; Equipment; Infant Care; Community Resources (09/15/2016 23:11:Sindi Rodriguez RN) DOMESTIC VIOLANCE SCREENING Dom Viol Threatened/Hurt: No (09/15/2016 23:11:Sindi Rodriguez RN) Hx of Abuse/Neglect past 2yrs: No (09/15/2016 23:11:Sindi Rodriguez RN) Feel Unsafe Going Home: No (09/15/2016 23:11:Sindi Rodriguez RN) Addt'l Observ Indicating Abuse: No (09/15/2016 23:11:Sindi Rodriguez RN) Reason Unable to Complete Screen: N/A, Screen Completed (09/15/2016 23:11:Sindi Rodriguez RN) Considered Personal Harm/Suicide: No (09/15/2016 23:11:Sindi Rodriguez RN) NUTRITIONAL/FUNCTIONAL SCREENING Problem with Appetite >5 Days: No (09/15/2016 23:11:Sindi Rodriguez RN) Chew/Swallow Difficulties: No (09/15/2016 23:11:Sindi Rodriguez RN) Inappropriate Wt Gain/Loss: No (09/15/2016 23:11:Sindi Rodriguez RN) Presence Skin Breakdown/Ulcer: No (09/15/2016 23:11:Sindi Rodriguez RN) Special Diet: No (09/15/2016 23:11:Sindi Rodriguez RN) Pt Requests Employee Benefits Insurance Agent Visit: No (09/15/2016 23:11:Sindi Rodriguez RN) Hx of Any of the Following?: N/A (09/15/2016 23:11:Sindi Rodriguez RN) New Diagnosis of: Gest Diabetes (09/15/2016 23:11:Sindi Rodriguez RN) Requires Assist w/Ambulation: No (09/15/2016 23:11:Sindi Rodriguez RN) Uses Assist Device to Ambulate: No (09/15/2016 23:11:Sindi Rodriguez RN) Pt Requires Help w/ADL's: No (09/15/2016 23:11:Sindi Rodriguez RN)
--- NOTE | 2016-09-17 06:01 | L&D General Admission ---
General Admit Datetime Report Generated by CPN: 09/17/2016 06:00 INFORMATION Patient Age: 36 (09/11/2016 16:46:QS system process) EDC: 10/26/2016 00:00 (09/11/2016 17:02:Miya Roman RN) : 4 (09/11/2016 17:02:Miya Roman RN) Para: 3 (09/11/2016 17:02:Miya Roman RN) Term: 3 (09/11/2016 17:02:Miya Roman RN) : 0 (09/11/2016 17:02:Miya Roman RN) Spontaneous Abortions: 0 (09/11/2016 17:02:Miya Roman RN) Induced Abortions: 0 (09/11/2016 17:02:Miya Roman RN) Livin (09/11/2016 17:02:Miya Roman RN) Cesareans: 0 (09/11/2016 17:02:Miya Roman RN) VBACs: 0 (09/11/2016 17:02:Miya Roman RN) Ectopic: 0 (09/11/2016 17:02:Miya Roman RN) Multiple Births: 0 (09/11/2016 17:02:Miya Rmoan RN) Baby, Number in Womb: 1 (09/11/2016 17:02:Miya Roman RN) CARE Primary Fire Watchman: [facility] (09/11/2016 17:02:Miya Roman RN) Month of 1st Visit: 03/2016 (09/11/2016 17:02:Miya Roman RN) Adequate Care: Yes (09/11/2016 17:02:Miya Roman RN) Prepregnancy Weight (lb): 212 (09/11/2016 17:02:Miya Roman RN) Prepregnancy Weight (kg): 96.4 (09/11/2016 17:02:QS system process) Height (in): 68 (09/16/2016 13:49:QS system process) ALLERGIES Medication Allergy: No (09/11/2016 17:02:Miya Roman RN) Medication Allergies: erythromycin base/MO (09/16/2016) (09/16/2016 00:32:QS system process) Latex Allergy: No Latex Allergies (09/11/2016 17:02:Miya Roman RN) Food Allergies: N/A (09/11/2016 17:02:Miya Roman RN) Environmental Allergies: N/A (09/11/2016 17:02:Miya Roman RN) COMMUNICATION Primary Language: Ethiopian (09/11/2016 17:02:Miya Roman RN) Medical Tx Preferred Language: Ethiopian (09/11/2016 17:02:Miya Roman RN) DEMOGRAPHICS Address: [address] [place] [id number] (09/11/2016 16:46:QS system process) Zipcode: [address] (09/11/2016 16:46:QS system process) Home (09/11/2016 16:46:QS system process) SSN: [id number] (09/11/2016 16:46:QS system process) Next of Kin Name: FERNY NEWTON (09/11/2016 16:46:QS system process) Next of Kin (09/11/2016 16:46:QS system process) Next of Kin Relationship: SPO (09/11/2016 16:46:QS system process) Date of : 1980 (09/11/2016 16:46:QS system process) Marital Status: (09/11/2016 16:46:QS system process) Sex: Female (09/11/2016 16:46:QS system process) Race: (09/11/2016 16:46:QS system process) Ethnicity: Non- or (09/11/2016 16:46:QS system process) Hindu: Church (09/11/2016 16:46:QS system process) DRUG AND ALCOHOL USE Alcohol: No (09/11/2016 17:02:Miya Roman RN) Cigarettes: Never Smoker. [id number] (09/11/2016 17:02:Miya Roman RN) Marijuana: No (09/11/2016 17:02:Miya Roman RN) Cocaine: No (09/11/2016 17:02:Miya Roman RN) Other Illicit Drugs: No (09/11/2016 17:02:Miya Roman RN) VACCINE HISTORY Influenza Vaccine: Yes (09/11/2016 17:02:Miya Roman RN) Pneumococcal Vaccine: No (09/11/2016 17:02:Miya Roman RN) Tetanus Vaccine: Yes (09/11/2016 17:02:Miya Roman RN) Tdap Vaccine: Yes (09/11/2016 17:02:Miya Roman RN) Hepatitis B Vaccine: Yes (09/11/2016 17:02:Miya Roman RN) Residential Sales Rep: [facility] (09/11/2016 17:02:Miya Roman RN) Feeding Preference: Breast (09/11/2016 17:02:Miya Roman RN) Benefit of Breast Feed Discussed: Yes (09/11/2016 17:02:Miya Roman RN) Circumcision: N/A (09/11/2016 17:02:Miya Roman RN) Classes Attended: No (09/11/2016 17:02:Miya Roman RN) Tubal Ligation: No (09/11/2016 17:02:Miya Roman RN) Tubal Authorization Signed: N/A (09/11/2016 17:02:Miya Roman RN) Consent: N/A (09/11/2016 17:02:Miya Roman RN) Consent Signed: N/A (09/11/2016 17:02:Miya Roman RN) Pain Management Plans: Epidural (09/11/2016 17:02:Miya Roman RN) Plans for Labor and Delivery: None (09/11/2016 17:02:Miya Roman RN) Support Person: Ferny (09/11/2016 17:02:Miya Roman RN) Support Person Relationship: (09/11/2016 17:02:Miya Roman RN) Cultural/Spritual Practice: [place] (09/11/2016 17:02:Miya Roman RN) Spir/Cult Dietary Needs: No (09/11/2016 17:02:Miya Roman RN) LIVING SITUATION/DISCHARGE PLAN Living Arrangements: House (09/11/2016 17:02:Miya Roman RN) Adequate Access to:: Electric; Heat; Refrigeration; Plumbing/Running water; Phone; Transportation (09/11/2016 17:02:Miya Roman RN) WIC Program: [place] (09/11/2016 17:02:Miya Roman RN) Discharge Stranding Machine Operator Helper Person: Ferny (09/11/2016 17:02:Miya Roman RN) Person to Help after Discharge: Ferny (09/11/2016 17:02:Miya Roman RN) Currently Using Commun Resources: [place]inette (09/11/2016 17:02:Miya Roman RN) Outside Agency/Electrical Worker: [place] (09/11/2016 17:02:Miya Roman RN) Car Seat for Discharge: Yes (09/11/2016 17:02:Miya Roman RN) Adoption Requested: No (09/11/2016 17:02:Miya Roman RN) Pt Contact w/infant Post : N/A (09/11/2016 17:02:Miya Roman RN) LABS Blood Type: A Positive (09/11/2016 17:02:Miya Roman RN) Antibody Screen: Negative (09/11/2016 17:02:Miya Roman RN) Rho(G) this : Not Applicable (09/11/2016 17:02:Miya Roman RN) Hemoglobin: 11.4 L (09/15/2016 23:00:QS system process) Hematocrit: 34.0 L (09/15/2016 23:00:QS system process) MCV: 87 (09/15/2016 23:00:QS system process) Group Beta Strep: unknown (09/11/2016 17:02:Sindi Rodriguez RN) Gonorrhea: Negative (09/11/2016 17:02:Sindi Rodriguez RN) Chlamydia: Negative (09/11/2016 17:02:Sindi Rodriguez RN) RPR/VDRL: Nonreactive (09/11/2016 17:02:Miya Roman RN) HIV Exposure Test: Negative (09/11/2016 17:02:Miya Roman RN) HIV Results: negative (09/11/2016 17:02:Sindi Rodriguez RN) Hepatitis B: Negative (09/11/2016 17:02:Miya Roman RN) Rubella: Immune (09/11/2016 17:02:Miya Roman RN) Rubella Titer: 5.29 (09/11/2016 17:02:Miya Roman RN) OB/PREVIOUS HISTORY Previous Procedures: Ultrasound; NST (09/11/2016 17:02:Miya Roman RN) Current Procedures: Ultrasound; NST (09/11/2016 17:02:Miya Roman RN) History of Previous : No (09/11/2016 17:02:Miya Roman RN) History of Gestational Diabetes: Yes (09/11/2016 17:02:Miya Roman RN) History of PIH: No (09/11/2016 17:02:Miya Roman RN) History of Incompetent Cervix: No (09/11/2016 17:02:Miya Roman RN) History of Placenta Previa/Abrup: No (09/11/2016 17:02:Miya Roman RN) History of Macrosomia: No (09/11/2016 17:02:Miya Roman RN) History of IUGR: No (09/11/2016 17:02:Miya Roman RN) History of Hemorrhage: No (09/11/2016 17:02:Miya Roman RN) History of Loss/Stillborn: No (09/11/2016 17:02:Miya Roman RN) History of : No (09/11/2016 17:02:Miya Roman RN) History of D (Rh) Sensitization: No (09/11/2016 17:02:Miya Roman RN) History Recurrent Loss/Stillborn: No (09/11/2016 17:02:Miya Roman RN) History Depression/PP Depression: No (09/11/2016 17:02:Miya Roman RN) History of Uterine Anomaly/HELENA: No (09/11/2016 17:02:Miya Roman RN) History of Infertility: No (09/11/2016 17:02:Miya Roman RN) History of ART Treatment: No (09/11/2016 17:02:Miya Roman RN) History of HELENA: No (09/11/2016 17:02:Miya Roman RN) Comments Obstetrical History: G1: 2003 41-42 week baby boy, 4.5 hours labor, 6 lb 13 oz, IOL G2: 2006 41-42 week baby boy, 5-6 hours labor, 8 lb 8 oz, IOL G3: 2010 37 week baby boy, 1.5 hour labor, 6 lb 13 oz G4: Current, GDM, AMA (09/11/2016 17:02:Miya Roman RN) MEDICAL HISTORY Med Hx Diabetes: Yes (09/11/2016 17:02:Miya Roman RN) Diabetes Type: Gestational Diabetes (09/11/2016 17:02:Miya Roman RN) Med Hx Hypertension: No (09/11/2016 17:02:Miya Roman RN) Med Hx Heart Disease: No (09/11/2016 17:02:Miya Roman RN) Med Hx Autoimmune Disorder: No (09/11/2016 17:02:Miya Roman RN) Med Hx Kidney Disease/UTI: No (09/11/2016 17:02:Miya Roman RN) Med Hx Neurologic/Epilepsy: No (09/11/2016 17:02:Miya Roman RN) Med Hx Psychiatric Disorders: No (09/11/2016 17:02:Miya Roman RN) Med Hx Hepatitis/Liver Disease: No (09/11/2016 17:02:Miya Roman RN) Med Hx Varicosities/Phlebitis: No (09/11/2016 17:02:Miya Roman RN) Med Hx Thyroid Dysfunction: Yes (09/11/2016 17:02:Miya Roman RN) Med Hx Trauma/Violence: No (09/11/2016 17:02:Miya Roman RN) Med Hx Blood Transfusion: No (09/11/2016 17:02:Miya Roman RN) Med Hx Pulmonary (Asthma,TB): Yes (09/11/2016 17:02:Miya Roman RN) Med Hx Breast: No (09/11/2016 17:02:Miya Roman RN) Med Hx OPTOMETRY PROFESSOR Surgery: No (09/11/2016 17:02:Miya Roman RN) Med Hx Hospitalization/Surgery: No (09/11/2016 17:02:Miya Roman RN) Med Hx Anesthetic Complications: No (09/11/2016 17:02:Miya Roman RN) Med Hx Abnormal Pap Smear: No (09/11/2016 17:02:Miya Roman RN) Other Medical Diseases: No (09/11/2016 17:02:Miya Roman RN) Med Hx Significant Family Hx: No (09/11/2016 17:02:Miya Roman RN) Details of Med/Surg Hx: GDM: Diet contolled Thyroid: Hypothyroid on Synthroid Asthma: Albuterol PRN, Flovent daily Other: Migraines; Fioricet/Topomax/Imitrex (09/11/2016 17:02:Miya Roman RN) INFECTIOUS HISTORY Inf Hx Gonorrhea: No (09/11/2016 17:02:Miya Roman RN) Inf Hx Chlamydia: No (09/11/2016 17:02:Miya Roman RN) Inf Hx Syphilis: No (09/11/2016 17:02:Miya Roman RN) Inf Hx HIV/AIDS: No (09/11/2016 17:02:Miya Roman RN) Inf Hx Human Papilloma Virus: No (09/11/2016 17:02:Miya Roman RN) Inf Hx Pt/Partner Genital Herpes: No (09/11/2016 17:02:Miya Roman RN) Inf Hx Tuberculosis/Exposure: No (09/11/2016 17:02:Miya Roman RN) Inf Hx Hepatitis B,C: No (09/11/2016 17:02:Miya Roman RN) Inf Hx Rash or Viral Illness: No (09/11/2016 17:02:Miya Roman RN) GENETIC HISTORY Gen Hx Age >=35 at NELY: Yes (09/11/2016 17:02:Nati Hallman RN) Gen Hx Thalassemia: No (09/11/2016 17:02:Miya Roman RN) Gen Hx Congenital Heart Defect: No (09/11/2016 17:02:Miya Roman RN) Gen Hx Neural Tube Defect: No (09/11/2016 17:02:Miya Roman RN) Gen Hx Down's Syndrome: No (09/11/2016 17:02:Miya Roman RN) Gen Hx Leodan-Sachs: No (09/11/2016 17:02:Miya Roman RN) Gen Hx Shirin: No (09/11/2016 17:02:Miya Roman RN) Gen Hx Familial Dysautonomia: No (09/11/2016 17:02:Miya Roman RN) Gen Hx Sickle Cell Disease/Trait: No (09/11/2016 17:02:Miya Roman RN) Gen Hx Hemophilia/Blood Disorder: No (09/11/2016 17:02:Miya Roman RN) Gen Hx Muscular Dystrophy: No (09/11/2016 17:02:Miya Roman RN) Gen Hx Cystic Fibrosis: No (09/11/2016 17:02:Miya Roman RN) Gen Hx Huntingtons Chorea: No (09/11/2016 17:02:Miya Roman RN) Gen Hx Mental Retardation/Autism: No (09/11/2016 17:02:Miya Roman RN) Gen Hx Tested for Fragile X: No (09/11/2016 17:02:Miya Roman RN) Gen Hx Other Inher/Chromosomal: No (09/11/2016 17:02:Miya Roman RN) Gen Hx Maternal Metabolic DO: No (09/11/2016 17:02:Miya Roman RN) Gen Hx Pt Father or FOB Defect: No (09/11/2016 17:02:Miya Roman RN) Gen Hx Other Genetic History: No (09/11/2016 17:02:Miya Roman RN) Gen Hx Drugs/Meds since LMP: No (09/11/2016 17:02:Miya Roman RN)
--- NOTE | 2016-09-17 06:15 | L&D Care Plan ---
LD CARE PLANS Datetime Report Generated by CPFlorence: 09/17/2016 06:15 Datetime: 09/16/2016 01:06 State: Risk For (Sindi Rodriguez RN) Related To: Labor and Delivery Process; Complication(s) of ; Treatment and Procedures; Post (Sindi Rodriguez RN) Goal(s): Patients Pain will be Assessed and Managed; Patient will Verbalize Adequate Relief of Pain or the Ability to [place] with Current Pain (Sindi Rodriguez RN) Interventions: Assess Pain Severity on Scale of 0 (None) to 5 (Severe); Assess Type, Location and Intensity of Pain Each Time Client Reports Discomfort and Notify Provider if Unusal Pain Develops; Encourage Proper Breathing and Relaxation Techniques; Offer Alternatives Such as Repositioning, Calm Environment, Massages, Diversional Activities, Ice Pack, Splinting, and Ambulation; Administer Analgesics as Ordered; Assist with Epidural Placement as Appropriate; Evaluate Therapeutic Effectiveness of Medication and Treatments (Sindi Rodriguez RN) Outcome: Patient will Report Absence or Relief of Pain Consistent with Established Pain Goal (Sindi Rodriguez RN) Outcome: Patient will have a Decrease in Signs and Symptoms of Discomfort (Sindi Rodriguez RN) Outcome: Pain will be Controlled During Procedures (Sindi Rodriguez RN) State: Risk For (Sindi Rodriguez RN) Related To: Labor and Delivery Process; Fear of Unknown; Situational Crisis; Medical Interventions; Significant Life Event (Sindi Rodriguez RN) Goal(s): Patient will have Decreased Anxiety and be able to Function at Acceptable Levels (Sindi Rodriguez RN) Interventions: Assess Verbal and Nonverbal Behavioral Indicators of Anxiety; Assist Patient to Identify and Verbalize Symptoms of Anxiety; Identify and Demonstrate Techniques to Control Anxiety; Assist Patient with Coping Mechanisms to Manage Anxiety; Provide Theraputic Touch for the Patient; Explain to Patient, Using a Calm Reassuring Approach and Nonmedical Terms, All Activities, Procedures, and Concerns; Instruct Patient and Family about Post Discharge Care, Limitations, Symptoms to Report and Resources Available (Sindi Rodriguez RN) Outcome: Patient will Identify, Verbalize and Demonstrate Techniques to Control Anxiety (Sindi Rodriguez RN) Outcome: Patient's Posture, Facial Expressions, Gestures and Activity Level will Reflect Decreased Anxiety (Sindi Rodriguez RN) Outcome: Patient will Verbalize a Sense of Control and/or Acceptance of the Situation (Sindi Rodriguez RN) Outcome: Patient will Identify and Utilize Support Person (Sindi Rodriguez RN) State: Risk For (Sindi Rodriguez RN) Related To: Labor and Delivery Process; Treatment and Procedures; Impending Alterations in Family Dynamics; Feeding and Care; Community Resources and Available Support Mechanisms (Sindi Rodriguez RN) Goal(s): Patient will Accurately Verbalize Understanding of Plan of Care and Treatment; Patient and Family will Accurately Verbalize Understanding of the Disease Process (Sindi Rodriguez RN) Interventions: Assess Motivation and Willingness of Patient/Family to Learn; Assess Preferred Learning Mode: One to One Instruction, Reading, Videos, Group Discussion or Demonstration; Assess Barriers to Learning: Pain, Emotional State, Language Barrier, Cognitive Impairment, Visual or Hearing Deficits; Assess Patient and Family Knowledge of Disease Process, Medications and Treatment; Discuss Therapy and/or Treatment Options, Describe Rationale Behind Management, Therapy and Treatment Recommendations; Instruct Patient and Family on Signs and Symptoms to Report; Instruct Patient and Family on Medication Effects and Side Effects; Provide Appropriate and Timely Education Using Multiple Techniques; Provide Patient and Family with Support Group Information and Resources; Give Clear and Thorough Explanations and Demonstrations (Sindi Rodriguez RN) Outcome: Patient and Family will Verbalize Understanding of Condition, Treatment and Signs and Symptoms to Report (Sindi Rodriguez RN) Outcome: Patient will Identify Perceived Learning Needs and Express Motivation to Learn (Sindi Rodriguez RN) Outcome: Patient will Verbalize Understanding of Desired Content, and/or Performs Desired Skill Prior to Discharge (Sindi Rodriguez RN) State: Risk For (Sindi Rodriguez RN) Related To: Prolonged Labor or Induction; Premature/Prolonged Rupture of Membranes; Invasive Procedures; Altered Tissue Integrity (Sindi Rodriguez RN) Goal(s): The Patient will be Free of Infection, Vital Signs Stable and Lab Work within Normal Parameters (Sindi Rodriguez RN) Interventions: Instruct and Reinforce Proper Handwashing, Hygiene, and Care Techniques to Patient and Family; Monitor Vital Signs; Monitor Patient for the Following Signs of Infection: Fever, Abdominal Tenderness, Unusual Discharge; Monitor Aminiotic Fluid, Urine and Lochia for Color and Odor; Observe Wounds, Incisions and Invasive Line Sites for Redness, Drainage and Edema; Assess IV Sites per Hospital Policy; Monitor Lab and Test Results and Notify Provider of Abnormal Findings; Assess Nutritional Status and Promote Good Nutrition (Sindi Rodriguez RN) Outcome: Patient will Remain Free of Infection (Sindi Rodriguez RN) Outcome: Infection will be Recognized Early to Allow for Prompt Treatment (Sindi Rodriguez RN) Outcome: Patient will have Vital Signs Within Expected Range (Sindi Rodriguez RN) State: Risk For (Sindi Rodriguez RN) Related To: Prolonged Labor or Induction; Disease Process; Anesthesia (Sindi Rodriguez RN) Goal(s): Patient will Achieve and Maintain a Balanced Fluid Volume Status; Hemodynamically Stable (Sindi Rodriguez RN) Interventions: Monitor Vital Signs; Auscultate Breath Sounds; Monitor Patient for Skin Turgor, Mucous Membranes, Dry Skin, Weakness, Headaches and Confusion; Provide Oral Fluids as Ordered; Initiate and Maintain Intravenous Fluids as Ordered; Monitor Intake and Output as Indicated Per Patient Status; Accurately Measure Blood Loss; Monitor Lab and Test Results as Obtained and Notify Provider of Abnormal Findings; Monitor Patient's Weight (Sindi Rodriguez RN) Outcome: Patient will have Clear Lung Sounds (Sindi Rodriguez RN) Outcome: Patient will have Vital Signs within Expected Range (Sindi Rodriguez RN) Outcome: Urine Output will be within Expected Range (Sindi Rodriguez RN) Outcome: Patient will have Minimal Generalized or Upper Extremity Edema (Sindi Rodriguez RN) State: Risk For (Shadia Temple RN) Related To: Labor and Delivery Process; Anesthesia; Risk to Status; Uteroplacental Perfusion; Decreased Mobility; Hemorrhage, Placenta Previa and or Placental Abruption (Shadia Temple RN) Goal(s): Patient will Remain Free from Injury (Shadia Temple RN) Interventions: Monitoring as per Hospital Protocol; Assess Neurological Status; Perform Risk Assessment of Patients with Induction and ; Perform Fall Risk Assessment and Prevention per Hospital Protocol; Perform DVT Risk Assessment and Prophylaxis per Hospital Protocol; Ensure that Oxygen, Suction, and Resuscitation Medications and Equipment are Readily Available; Confirm Patient ID Prior to Procedure(s) and Medication Administration per Hospital Policy (Shadia Temple RN) Outcome: Successful Fall Risk Prevention (Shadia Temple RN) Status: Ongoing (Shadia Temple RN) Outcome: Patient will Deliver without Adverse [place] (Shadia Temple RN) Status: Ongoing (Shadia Temple RN) Outcome: Patient's Neurological Status will Remain Stable (Shadia Temple RN) Status: Ongoing (Shadia Temple RN) State: Risk For (Shadia Temple RN) Related To: Vaginal Delivery; Surgical Procedures; Invasive Procedures (Shadia Temple RN) Goal(s): Patient will Maintain Optimal Skin Integrity, Free of Breakdown, Injury or Infection (Shadia Temple RN) Interventions: Complete Screening for Pressure Ulcer Risk and Initiate Protocol per Hospital Policy; Monitor Site of Skin Impairment for Color Changes, Redness, Swelling, Warmth, Pain or Other Signs of Infection; Encourage and Assist with Position Changes; Monitor Patient's Mobility Status; Provide Adequate Nutrition and Fluids; Teach Patient Appropriate Hygienic Care; Teach Patient/Family Skin Care Management (Shadia Temple RN) Outcome: Patient will not have Evidence of Injury Such as Skin Breakdown, Scrapes, Cuts, or Bruising (Shadia Temple RN) Status: Ongoing (Shadia Temple, JULISSA) Outcome: Patient will Report Any Altered Sensation or Pain at Site of Skin Impairment (Shadia Temple RN) Status: Ongoing (Shadia Temple RN) Outcome: Patients Incisions and Wounds will be without Signs or Symptoms of Infection (Shadia Temple, JULISSA) Status: Ongoing (Shadia Temple, JULISSA) Outcome: Patient will Demonstrate Understanding of Plan to Heal Skin and Prevent Reinjury and Verbalize Risk Factors (Shadia Temple, JULISSA) Status: Ongoing (Shadia Tmeple RN) State: Not Applicable (Shadia Temple, JULISSA) State: Risk For (Shadia Temple RN) Related To: ; (Shadia Temlpe, JULISSA) Goal(s): Patient will have an Intake of Nutrients Sufficient to Meet Metabolic Needs (Shadia Temple RN) Interventions: Nutritional Screening and Assessment per Hospital Policy; Consult Market Basket Maker for Further Assessment and Recommendations Regarding Food Preferences and Nutritional Support; Allow Patient to Plan and Order Diet when Possible; Monitor Laboratory Values That Indicate Nutritional Well-being; Consult Books Salesperson for Nutritional Support Regarding Requirements; Document Actual Weight Initially and Weekly (Do Not Estimate); Encourage Patient Participation in Maintaining a Food Log as Indicated; Educate Patient on the Importance of Maintaining an Adequate Caloric Intake (Shadia Temple, JULISSA) Outcome: Patient will Receive Adequate Calories and Fluid Volume to Meet Metabolic Needs (Shadia Temple RN) Status: Ongoing (Shadia Temple RN) Outcome: Patient will Select Foods or Meals that Support Adequate Nutrition (Shadia Temple, JULISSA) Status: Ongoing (Shadia Temple RN) State: Not Applicable (Shadia Temple, RN) State: Actual (Shadia Temple, JULISSA) Nursing Diagnosis or r/t: (Shadia Temple RN) Goal(s): , no pacifiers, not bottles (Shadia Temple RN) Interventions: -sales and leasing consultant will come to evaluate latch -no pacifiers until latch established -will breast feed every 2-3 hours, on demand -no bottles unless attempted first and medically necessary (Shadia Temple RN) Outcome Status: Ongoing (Shadia Temple RN)
[2016-09-17 07:33] LABS: HEMOGLOBIN 10.2 g/dL (12.0-15.5); HGB HCT DIFFERENCE 0.6; MEAN CORPUSCULAR HEMOGLOBIN 29.6 pg (27.0-33.4); MEAN CORPUSCULAR HGB CONC 33.9 g/dL (32.0-36.0); MEAN CORPUSCULAR VOLUME 88 fl (80-97); RED BLOOD COUNT 3.43 10^6/uL (3.72-5.28); RED CELL DISTRIBUTION WIDTH 13.9 % (11.5-14.0); WHITE BLOOD COUNT 12.6 10^3/uL (4.0-10.5)
[2016-09-17] MEDS: TOPIRAMATE 100 MG TABLET PO SCH (09:32)
[2016-09-17] MEDS: PRENATAL VITAMIN W-O CA NO5/FE FUMARATE/FA CAPSULE PO SCH (09:33)
[2016-09-17] MEDS: LEVOTHYROXINE SODIUM 0.025 MG TABLET PO SCH (09:33)
[2016-09-17] MEDS: DOCUSATE SODIUM 100 MG CAPSULE PO SCH ×2 (09:33→18:17)
[2016-09-17] MEDS: LEVOTHYROXINE SODIUM 0.1 MG TABLET PO SCH (09:33)
[2016-09-17] MEDS ORDERED: (PENDING PHARMACY ID) (Fluticasone Propionate [Flovent Hfa 220 Mcg Mdi] 1 PUFF) PO SCH (10:00)
[2016-09-17] MEDS ORDERED: PSEUDOEPHEDRINE PO SCH (10:00)
[2016-09-17] MEDS ORDERED: TOPIRAMATE 100 MG TABLET PO SCH (10:00)
[2016-09-17] MEDS ORDERED: FEXOFENADINE PO SCH (10:00)
[2016-09-17] MEDS: LORATADINE/PSEUDOEPHEDRINE SUL 10-240 MG TAB.SR.24H PO SCH (11:54)
--- NOTE | 2016-09-17 12:03 | PDOC PROGRESS REPORT ---
Subjective-OB Subjective: Post Delivery Day: 36 year old. Denies any needs at this time s/p repeat c section pt ambulating well incision dry and intact binder in place ff@u-1 +flatus, -bm reports headache- sinus pressure medicating and reports post delivery headache with all pregnancies k pad to abdomen lights turned down encouraged rest pt verbalizes understanding nurse at bedside Physical Exam (OB) Vital Signs: Temp Pulse Resp BP Pulse Ox 98.4 F 121 H 16 126/72 H 99 09/17/16 08:21 09/17/16 08:21 09/17/16 08:21 09/17/16 08:21 09/17/16 08:21 Intake & Output 09/16/16 09/17/16 09/18/16 06:59 06:59 06:59 Intake Total 625 500 Output Total 1850 450 Balance -1225 50 Weight 103.2 kg - Dressing Removed: No - Opsite dressing D&I, no redness, swelling or new drainage noted Incision: Well Approximated Closure Type: opsite - Lochia Lochia Amount: Scant < 10 ml Lochia Color: Rubra/Red - Abdomen Description: Tender, Soft Hernia Present: No Fundal Description: Firm, Midline Fundal Height: u/u - u/2 Objective-Diagnostic Laboratory: 09/17/16 07:15 09/15/16 09/17/16 23:00 07:15 WBC 12.6 H RBC 3.43 L Hgb 10.2 L Hct 30.0 L MCV 88 MCH 29.6 MCHC 33.9 RDW 13.9 Plt Count 235 Blood Type A POSITIVE Antibody Screen POSITIVE
[2016-09-17] MEDS: FLUTICASONE PROPIONATE HFA 110 MCG/PUFF 12 GM MDI IH SCH (12:28)
[2016-09-17] MEDS: IBUPROFEN 800 MG TABLET PO SCH ×2 (18:18→23:53)
[2016-09-18] MEDS: OXYCODONE-ACETAMINOPHEN 5-325 MG TABLET PO PRN ×4 (05:37→19:38)
[2016-09-18] MEDS: IBUPROFEN 800 MG TABLET PO SCH ×4 (05:38→23:00)
[2016-09-18] MEDS: DOCUSATE SODIUM 100 MG CAPSULE PO SCH ×2 (09:31→18:13)
[2016-09-18] MEDS: PRENATAL VITAMIN W-O CA NO5/FE FUMARATE/FA CAPSULE PO SCH (09:32)
[2016-09-18] MEDS: LEVOTHYROXINE SODIUM 0.025 MG TABLET PO SCH (09:32)
[2016-09-18] MEDS: TOPIRAMATE 100 MG TABLET PO SCH (09:32)
[2016-09-18] MEDS: LORATADINE/PSEUDOEPHEDRINE SUL 10-240 MG TAB.SR.24H PO SCH (09:32)
[2016-09-18] MEDS: LEVOTHYROXINE SODIUM 0.1 MG TABLET PO SCH (09:32)
[2016-09-18] MEDS: FLUTICASONE PROPIONATE HFA 110 MCG/PUFF 12 GM MDI IH SCH (12:15)
--- NOTE | 2016-09-18 14:17 | PDOC PROGRESS REPORT ---
Subjective-OB Subjective: Post Delivery Day: 36 year old. Denies any needs at this time. Pt doing well, no concerns. She reports light bleeding, regular diet and voiding well. Physical Exam (OB) Vital Signs: Temp Pulse Resp BP Pulse Ox 98.1 F 108 H 16 118/78 98 09/18/16 08:56 09/18/16 08:56 09/18/16 08:56 09/18/16 08:56 09/18/16 08:56 Intake & Output 09/17/16 09/18/16 09/19/16 06:59 06:59 06:59 Intake Total 625 1700 400 Output Total 1850 450 Balance -1225 1250 400 - Dressing Removed: No - opsite dressing D&I, no redness, swelling or new drainage noted Incision: Well Approximated Closure Type: opsite - Lochia Lochia Amount: Scant < 10 ml Lochia Color: Rubra/Red - Abdomen Description: Tender, Soft Hernia Present: No Fundal Description: Firm, Midline Fundal Height: u/u - u/2 Objective-Diagnostic Laboratory: 09/17/16 07:15 Assessment and Plan(PN) - Assessment and Plan (1) delivery delivered Is this a current diagnosis for this admission?: Yes - Time Spent with Patient Time with patient: Less than 15 minutes Medications reviewed and adjusted accordingly: Yes - Disposition Anticipated Discharge: Home Within: within 24 hours
[2016-09-19] MEDS: OXYCODONE-ACETAMINOPHEN 5-325 MG TABLET PO PRN ×2 (02:00→06:17)
[2016-09-19] MEDS: IBUPROFEN 800 MG TABLET PO SCH (06:05)
[2016-09-19] MEDS ORDERED: OXYCODONE-ACETAMINOPHEN 5-325 MG TABLET ONE (06:12)
[2016-09-19] MEDS: FLUTICASONE PROPIONATE HFA 110 MCG/PUFF 12 GM MDI IH SCH (09:44)
[2016-09-19] MEDS: DOCUSATE SODIUM 100 MG CAPSULE PO SCH (09:44)
[2016-09-19] MEDS: LEVOTHYROXINE SODIUM 0.1 MG TABLET PO SCH (09:45)
[2016-09-19] MEDS: LORATADINE/PSEUDOEPHEDRINE SUL 10-240 MG TAB.SR.24H PO SCH (09:45)
[2016-09-19] MEDS: PRENATAL VITAMIN W-O CA NO5/FE FUMARATE/FA CAPSULE PO SCH (09:45)
[2016-09-19] MEDS: LEVOTHYROXINE SODIUM 0.025 MG TABLET PO SCH (09:45)
[2016-09-19 10:02] VITALS: BP 112/67
--- NOTE | 2016-09-19 10:42 | PDOC PROGRESS REPORT ---
Subjective-OB Subjective: Post Delivery Day: 36 year old. Denies any needs at this time. Ready to go home. Baby to stay another 2 wks. Physical Exam (OB) Vital Signs: Temp Pulse Resp BP Pulse Ox 98.2 F 81 15 112/67 99 09/19/16 09:39 09/19/16 09:39 09/19/16 09:39 09/19/16 09:39 09/19/16 09:39 Intake & Output 09/18/16 09/19/16 09/20/16 06:59 06:59 06:59 Intake Total 1700 1150 Output Total 450 Balance 1250 1150 - Dressing Removed: No Incision: Dressing Closure Type: opsite - Lochia Lochia Amount: Small 10-25 ml Lochia Color: Rubra/Red - Abdomen Description: Soft, Round Hernia Present: No Bowel Sounds: Normoactive Flatus Presence: Present Stool: No Fundal Description: Firm, Midline Fundal Height: 1/u - 2/u Objective-Diagnostic Laboratory: 09/17/16 07:15 Assessment and Plan(PN) - Time Spent with Patient Medications reviewed and adjusted accordingly: Yes - Disposition Anticipated Discharge: Home
--- NOTE | 2016-09-19 10:54 | PDOC DISCHARGE SUMMARY ---
Final Diagnosis Discharge Date: 09/19/16 - Final Diagnosis (1) AMA (advanced maternal age) multigravida 35+ Is this a current diagnosis for this admission?: Yes (2) Asthma Is this a current diagnosis for this admission?: Yes (3) delivery delivered Is this a current diagnosis for this admission?: Yes (4) GDM (gestational diabetes mellitus) Is this a current diagnosis for this admission?: Yes (5) Hypothyroidism Is this a current diagnosis for this admission?: Yes (6) Morbid obesity Is this a current diagnosis for this admission?: Yes (7) Is this a current diagnosis for this admission?: Yes (8) Vitamin D deficiency Is this a current diagnosis for this admission?: Yes (9) premature rupture of membranes (PPROM) delivered, current hospitalization Is this a current diagnosis for this admission?: Yes Discharge Data - Discharge Medication Home Medications: Albuterol Sulfate [Ventolin Hfa 8 gm Mdi (1 Mdi/ER Disp)] 2 puff PO PRN PRN Fexofenadine/Pseudoephedrine [Suzette-D 12 Hour Tablet] 1 tab PO DAILY 09/11/16 Fluticasone Propionate [Flovent HFA 220 mcg MDI] 1 puff PO DAILY 09/11/16 Levothyroxine Sodium [Synthroid 0.025 mg Tablet] 5 tab PO DAILY 09/11/16 Docusate Sodium [Colace 100 mg Capsule] 100 mg PO BID #30 capsule 09/19/16 Ibuprofen [Motrin 800 mg Tablet] 800 mg PO Q6 #30 tablet 09/19/16 Levothyroxine Sodium [Synthroid 0.025 mg Tablet] 0.025 mg PO DAILY #0 tablet 09/06 Levothyroxine Sodium [Synthroid 0.1 mg Tablet] 0.1 mg PO DAILY #0 tablet Oxycodone HCl/Acetaminophen [Percocet 5-325 mg Tablet] 1 tab PO Q4HP PRN #20 tablet 09/19/16 Topiramate [Topamax 100 mg Tablet] 100 mg PO DAILY #0 tablet 09/19/16 Gestational Age: 34.2 wks Reason(s) for Admission: PROM Procedures: Ultrasound Intrapartum Procedure(s): : Low Cervical, Transverse - Data Baby 1 Female at 1 minute: 4 at 5 minutes: 8 Weight: 2.126 kg Home with Mother: No Complications: Yes - Prematurity - Diagnosis Test Laboratory: Temp Pulse Resp BP Pulse Ox 98.2 F 81 15 112/67 99 09/19/16 09:39 09/19/16 09:39 09/19/16 09:39 09/19/16 09:39 09/19/16 09:39 09/15/16 09/15/16 09/17/16 21:45 23:00 07:15 RBC 3.91 3.43 L Hgb 11.4 L 10.2 L Hct 34.0 L 30.0 L Urine Opiates Screen NEGATIVE - Discharge information/Instructions Discharge Activity: Activity As Tolerated, Balance Activity w/Rest, No Driving, No Lifting Over 10 Pounds, No Lifting/Push/Pulling, Non-Ambulatory Child, Pelvic Rest, Slowly Increase Activity, No tub bath Discharge Diet: Regular Disposition: HOME, SELF-CARE Follow up with: [facility] in: 1, Weeks
[2016-09-19] MEDS: TOPIRAMATE 100 MG TABLET PO SCH (11:26)
== END 2016-09-19 11:55 | disposition home or self-care (01) | DRG 766 ==
LOC: LC 21:07 → LR 22:01 → 2S 09-16 13:49
PROVIDERS: ADMIT Student in an Organized Health Care Education/Training Program; ATTEND Obstetrics & Gynecology
PROC: 10D00Z1 Extraction of Products of Conception, Low, Open Approach (ICD-10-PCS; principal; 2016-09-16)
PROC: 0UB70ZZ Excision of Bilateral Fallopian Tubes, Open Approach (ICD-10-PCS; 2016-09-16)
PROC: 4A1HXCZ Monitoring of Products of Conception, Cardiac Rate, External Approach (ICD-10-PCS; 2016-09-16)
DX: O64.8XX0 Obstructed labor due to other malposition and malpresentation, not applicable or unspecified (principal); O42.913 Preterm premature rupture of membranes, unspecified as to length of time between rupture and onset of labor, third trimester; O76 Abnormality in fetal heart rate and rhythm complicating labor and delivery; O99.214 Obesity complicating childbirth; E66.9 Obesity, unspecified; O24.420 Gestational diabetes mellitus in childbirth, diet controlled; O99.52 Diseases of the respiratory system complicating childbirth; J45.909 Unspecified asthma, uncomplicated; O99.284 Endocrine, nutritional and metabolic diseases complicating childbirth; E03.9 Hypothyroidism, unspecified; E55.9 Vitamin D deficiency, unspecified; Z88.3 Allergy status to other anti-infective agents; Z68.34 Body mass index [BMI] 34.0-34.9, adult; Z3A.34 34 weeks gestation of pregnancy; Z37.0 Single live birth; Z30.2 Encounter for sterilization; Z79.899 Other long term (current) drug therapy
CPT/HCPCS: 1961; 36415; 80307; 81001; 82962; 84112; 85025; 85027; 86592; 86850; 86870; 86900; 86901; 88302; 88307; 94640; 94760; 94799; J0131; J0690; J1885; J2175; J2250; J2270; J2370; J2405; J2540; J2590; J2704; J3010; J3490; Q0114

== ENCOUNTER → 2019-04-30 | Outpatient (CLI) | payer BC ==
--- NOTE | 2019-04-30 15:28 | RADIOLOGY REPORT (SQ) ---
EXAM DESCRIPTION: CTA CHEST COMPLETED DATE/TIME: 04/30/2019 3:08 pm REASON FOR STUDY: (R05)COUGH;(R06.02)SHORTNESS OF BREATH;(R50.9)FEVER, UNSPECIFIED R05 COUGH R50.9 FEVER, UNSPECIFIED R06.02 SHORTNESS OF BREATH COMPARISON: None. TECHNIQUE: CT scan of the chest performed using helical scanning technique with dynamic intravenous contrast injection. Images reviewed with lung, soft tissue and bone windows. Reconstructed coronal and sagittal MPR images reviewed. Additional 3 dimensional post-processing performed to develop Maximal Intensity Projection images (ME P). All images stored on PACS. All CT scanners at this facility use dose modulation, iterative reconstruction, and/or weight based d osing when appropriate to reduce radiation dose to as low as reasonably achievable (ALARA). [facility]: Dose Right [facility]: CareDose [facility]: Dose Right [facility]: Teradose 4D [facility]: Samba.me CONTRAST TYPE AND DOSE: contrast/concentration: Isovue mg/ml; Total Contrast Delivered: 55.0 ml; To ousmane Saline Delivered: 80.0 ml Contrast bolus adequate for pulmonary arteries and aorta. RENAL FUNCTION: None required. The patient is less than 50 years old. RADIATION DOSE: CT Rad equipment meets quality standard of care and radiation dose reduction techniq ues were employed. CTDIvol: 9.4 - 11.8 mGy. DLP: 446 mGy-cm. . LIMITATIONS: None. FINDINGS: LUNGS AND PLEURA: There is a 12 mm nodule in the posterior costophrenic sulcus on the left . AORTA AND GREAT VESSELS: No aneurysm. Contrast bolus not optimized for the aorta. HEART: No pericardial effusion. No significant coronary artery calcifications. PULMONARY ARTERIES: No emboli visualized in the main pulmonary arteries or the segmental branches. HILAR AND MEDIASTINAL STRUCTURES: No identified masses or abnormal nodes. HARDWARE: None in the chest. UPPER ABDOMEN: No significant findings. Limited exam. THYROID AND OTHER SOFT TISSUES: No masses. No adenopathy. BONES: No acute or significant finding. 3D MIPS: Confirm above findings. OTHER: No other significant finding. IMPRESSION: 1. There is no pulmonary embolus. There is no aortic aneurysm or dissection. 2. There is a 12 mm nodule in the posterior costophrenic sulcus on the left: Neoplastic versus infl ammatory. Consider PET-CT. COMMENT: [place] CRITERIA FOR FOLLOW-UP OF PULMONARY NODULES Incidentally detected new nodules in persons 35 or older. HIGH RISK: History of smoking or other known risk factors. >8mm single solid nodule: LOW and HIGH RISK: consider CT, PET/CT or biopsy at 3 mo. Quality ID # [id number]: Final reports with documentation of one or more dose reduction techniques (e.g., Au tomated exposure control, adjustment of the mA and/or kV according to patient size, use of iterative reconstruction technique) TECHNICAL DOCUMENTATION: JOB ID: [id number] [employer]- All Rights Reserved Reading location - IP/workstation name: [email or web address]
== END ==
LOC: RAD 13:51
PROVIDERS: ATTEND Internal Medicine
DX: R91.1 Solitary pulmonary nodule (principal); R05 Cough; R50.9 Fever, unspecified; R06.02 Shortness of breath
CPT/HCPCS: 71275